=== PATIENT | male | born 1940 | race Caucasian/White ===

== ENCOUNTER → 2017-05-21 | Outpatient (CLI) | payer MEDICARE, OTHER ==
[~2017-05-21] MED LIST: ACET325T14 PO; AMLO10TA2 PO; AMLO5TAB2 PO; ASCO-96 PO; ASPI-496 PO; ATOR20TA PO; CLOP75TA PO; FERR325T18 PO; HEPA500024 SC; INSU100C SQ-INSULIN; INSU100V8 SQ; LEVO750T26 PO; LISI40TA PO; METO-99 PO; METO25TA35 PO; OMEP40CA6 PO; POTA10TA11 PO; TRAM-47 PO
== END | disposition home or self-care (01) ==
LOC: CFH 14:34
PROVIDERS: ATTEND Internal Medicine
DX: Z13.820 Encounter for screening for osteoporosis (principal); M81.0 Age-related osteoporosis without current pathological fracture; N25.81 Secondary hyperparathyroidism of renal origin
CPT/HCPCS: 77080

== ENCOUNTER 2018-04-14 21:13 | Inpatient (IN) | payer MEDICARE, OTHER ==
[~2018-04-14] VITALS: Ht 182.9 cm; Wt 83.3 kg
[~2018-04-14 21:13] MED LIST changes: -AMLO10TA2 PO; +AMLO10TA6 PO; -AMLO5TAB2 PO; +AMLO5TAB7 PO
[2018-04-14] MEDS ORDERED: ACETAMINOPHEN 500 MG TABLET ONE (21:44)
[2018-04-14] MEDS ORDERED: ACETAMINOPHEN 325 MG TABLET PO ONE (22:00)
[2018-04-14] MEDS ORDERED: ACETAMINOPHEN 500 MG TABLET PO ONE (22:00)
[2018-04-14 22:33] LABS: MEAN CORPUSCULAR HEMOGLOBIN 31.4 pg (27.5-34.5); MEAN CORPUSCULAR HGB CONC 33.9 g/dL (33.2-36.2); MEAN CORPUSCULAR VOLUME 92.9 fL (81-97); MEAN PLATELET VOLUME 9.2 fL (7.4-10.4); PLATELET COUNT 231 x10^3/uL (130-400); RED BLOOD COUNT 4.65 x10^6/uL (4.38-5.82)
[2018-04-14 22:47] LABS: MICROSCOPIC INDICATED
[2018-04-14 22:56] LABS: BASOPHILS # (AUTO) 0.03 x10^3/uL (0-0.1); BASOPHILS % (AUTO) 0 % (0-1); EOSINOPHILS % (AUTO) 0 % (1-7); LYMPHOCYTES # (AUTO) 2.09 x10^3/uL (1-3.4); LYMPHOCYTES % (AUTO) 18 % (22-44); MD SCAN; MONOCYTES # (AUTO) 1.58 x10^3/uL (0.2-0.8); MONOCYTES % (AUTO) 14 % (2-9); NEUTROPHILS # (AUTO) 7.81 x10^3/uL (1.8-6.8); NEUTROPHILS % (AUTO) 68 % (42-75)
[2018-04-14] MEDS ORDERED: CEFTRIAXONE 1,000 MG in SODIUM CHLORIDE 0.9% 50 ML IVPB ONE (23:00)
[2018-04-14] MEDS ORDERED: AZITHROMYCIN 500 MG in SODIUM CHLORIDE 0.9% 250 ML IV ONE (23:00)
[2018-04-14] MEDS ORDERED: CEFTRIAXONE PMX 1GM/50ML 50 ML ONE (23:09)
[2018-04-14 23:11] LABS: ANION GAP 13 mmol/L (5-15); CALCIUM 8.3 mg/dL (8.5-10.1); CHLORIDE 100 mmol/L (98-107); CREATININE 2.12 mg/dL (0.7-1.3)
[2018-04-14 23:13] LABS: CULTURE INDICATED? NO
[2018-04-14 23:16] LABS: RAPID INFLUENZA A Negative (Negative); RAPID INFLUENZA B Negative (Negative)
[2018-04-14] MEDS ORDERED: SODIUM CHLORIDE 0.9% 1,000 ML IV SCH (23:36)
[2018-04-15] MEDS ORDERED: ACETAMINOPHEN 325 MG TABLET PO PRN
[2018-04-15] MEDS ORDERED: DOCUSATE 100 MG CAPSULE PO PRN
[2018-04-15] MEDS ORDERED: GUAIFENESIN/DM 200-20MG, 10ML UDC PO PRN
[2018-04-15] MEDS ORDERED: hydrALAzine 20 MG/ML, 1ML IVPush PRN
[2018-04-15] MEDS ORDERED: ONDANSETRON ODT 4 MG PO PRN
[2018-04-15] MEDS ORDERED: TEMAZEPAM 15 MG CAPSULE PO PRN
[2018-04-15 00:30] VITALS: BP 152/75
[2018-04-15 00:47] VITALS: BP 152/75
[2018-04-15] MEDS: ATORVASTATIN 20 MG TABLET PO SCH ×2 (01:23→21:59)
[2018-04-15] MEDS: METOPROLOL TARTRATE 25 MG TABLET PO SCH ×2 (06:15→18:00)
[2018-04-15] MEDS: INSULIN LISPRO 100 UNITS/ML, PEN SQ-INSULIN SCH ×5 (07:39→22:02)
[2018-04-15 07:47] VITALS: BP 201/76
[2018-04-15] MEDS: AMLODIPINE 5 MG TABLET PO SCH (07:47)
[2018-04-15 08:15] LABS: ALBUMIN 2.8 g/dL (3.4-5.0); ANION GAP 9 mmol/L (5-15); CALCIUM 7.9 mg/dL (8.5-10.1); CHLORIDE 103 mmol/L (98-107); CREATININE 2.17 mg/dL (0.7-1.3)
[2018-04-15] MEDS ORDERED: CLOPIDOGREL 75 MG TABLET PO SCH (09:00)
[2018-04-15] MEDS ORDERED: ASPIRIN 81 MG TABLET CHEW PO SCH (09:00)
[2018-04-15] MEDS ORDERED: NITROGLYCERIN 0.4 MG BOTTLE (25 TABS) SL PRN (12:00)
[2018-04-15 13:25] VITALS: BP 158/62
[2018-04-15] MEDS: SODIUM CHLORIDE 0.9% 1,000 ML IV SCH (13:35)
[2018-04-15] MEDS: LAMOTRIGINE 100 MG TABLET PO SCH ×2 (16:00→22:00)
[2018-04-15 16:55] VITALS: BP 188/90
[2018-04-15 19:02] VITALS: BP_SYST 179; BP_SYST 192; BP_DIAS 76; BP_DIAS 82
[2018-04-15] MEDS ORDERED: INSULIN GLARGINE 100 UNITS/ML, PEN SQ-INSULIN SCH (21:00)
[2018-04-15] MEDS ORDERED: CEFTRIAXONE PMX 1GM/50ML 50 ML IV SCH (23:00)
[2018-04-15] MEDS ORDERED: AZITHROMYCIN 500 MG in SODIUM CHLORIDE 0.9% 250 ML IV SCH (23:00)
[2018-04-16 03:33] VITALS: BP_SYST 191; BP_SYST 197; BP_DIAS 80
[2018-04-16 05:03] LABS: ANION GAP 9 mmol/L (5-15); CALCIUM 7.4 mg/dL (8.5-10.1); CHLORIDE 106 mmol/L (98-107)
[2018-04-16 05:05] LABS: CREATININE 1.73 mg/dL (0.7-1.3)
[2018-04-16] MEDS ORDERED: POTASSIUM CHLORIDE 20 MEQ TAB.ER.PRT PO ONE (06:30)
[2018-04-16] MEDS: INSULIN LISPRO 100 UNITS/ML, PEN SQ-INSULIN SCH ×2 (07:00→11:26)
[2018-04-16] MEDS ORDERED: OMEPRAZOLE 20 MG CAPSULE.DR PO SCH (07:30)
[2018-04-16] MEDS: LAMOTRIGINE 100 MG TABLET PO SCH (09:00)
[2018-04-16 10:34] VITALS: BP 177/73
[2018-04-16] MEDS ORDERED: POTASSIUM CHLORIDE 20 MEQ TAB.ER.PRT ONE (10:47)
[2018-04-16] MEDS: METOPROLOL TARTRATE 25 MG TABLET PO SCH ×2 (10:48→11:18)
[2018-04-16] MEDS: AMLODIPINE 5 MG TABLET PO SCH (10:49)
[2018-04-16 10:53] VITALS: BP 166/73
[2018-04-16] MEDS: SODIUM CHLORIDE 0.9% 1,000 ML IV SCH (11:12)
[2018-04-16] MEDS ORDERED: hydrALAzine 20 MG/ML, 1ML IV ONE (11:30)
[2018-04-16] MEDS ORDERED: MULT-211 PO (11:49)
[2018-04-16] MEDS ORDERED: INSU100V11 SQ (11:49)
[2018-04-16] MEDS ORDERED: METO5AMP2 PO (11:54)
[2018-04-16] MEDS ORDERED: CEFU500T50 PO (12:16)
[2018-04-16] MEDS ORDERED: AZIT500T PO (12:16)
[2018-04-16 12:35] VITALS: BP 169/71
[2018-04-16 12:52] VITALS: BP 129/80
== END 2018-04-16 13:50 | disposition home or self-care (01) | DRG 682 ==
LOC: ED 21:17 → EDIP 04-15 00:03 → 4NOR 04-15 00:31 → DCLOUNGE 04-16 13:39
PROVIDERS: ADMIT Internal Medicine; ATTEND Hospitalist
DX: N17.9 Acute kidney failure, unspecified (principal); J15.9 Unspecified bacterial pneumonia; J96.11 Chronic respiratory failure with hypoxia; J44.0 Chronic obstructive pulmonary disease with (acute) lower respiratory infection; E11.21 Type 2 diabetes mellitus with diabetic nephropathy; E11.22 Type 2 diabetes mellitus with diabetic chronic kidney disease; E11.69 Type 2 diabetes mellitus with other specified complication; E78.5 Hyperlipidemia, unspecified; I13.10 Hypertensive heart and chronic kidney disease without heart failure, with stage 1 through stage 4 chronic kidney disease, or unspecified chronic kidney disease; N18.3 Chronic kidney disease, stage 3 (moderate); Z82.3 Family history of stroke; Z83.3 Family history of diabetes mellitus; Z87.891 Personal history of nicotine dependence; Z99.81 Dependence on supplemental oxygen; Z98.1 Arthrodesis status; Z88.6 Allergy status to analgesic agent; Z88.2 Allergy status to sulfonamides; Z90.49 Acquired absence of other specified parts of digestive tract
CPT/HCPCS: 36415; 71045; 80048; 81001; 82040; 82962; 83735; 84100; 85025; 87040; 87400; 93005; 96365; 96375; G0378; J0456; J0696; J0360; J1815; J7030; J7050

== ENCOUNTER 2018-07-23 16:01 | Inpatient (IN) | payer MEDICARE, OTHER ==
[~2018-07-23] VITALS: Ht 182.9 cm; Wt 77.1 kg
[~2018-07-23 16:01] MED LIST changes: +AMLO-150 PO; -AMLO10TA6 PO; +AMLO10TA8 PO; -AMLO5TAB7 PO; +ATOR-2 PO; +ATOR40TA PO; +AZIT500T PO; +CEFD300C37 PO; +CEFU500T50 PO; +DOXY100T PO; +GABA300C10 PO; +INSU100I11 SQ-INSULIN; +INSU100I13 SQ-INSULIN; +INSU100V11 SQ; +METO5AMP2 PO; +METR500T PO; +MULT-211 PO; +TAMS-11 PO
[2018-07-23 16:46] LABS: MEAN CORPUSCULAR HEMOGLOBIN 29.5 pg (27.5-34.5); MEAN CORPUSCULAR HGB CONC 32.5 g/dL (33.2-36.2); MEAN CORPUSCULAR VOLUME 90.7 fL (81-97); MEAN PLATELET VOLUME 7.6 fL (7.4-10.4); PLATELET COUNT 356 x10^3/uL (130-400); RED BLOOD COUNT 4.04 x10^6/uL (4.38-5.82)
[2018-07-23 17:00] LABS: ANION GAP 10 mmol/L (5-15); CHLORIDE 106 mmol/L (98-107)
[2018-07-23 17:06] LABS: ALANINE AMINOTRANSFERASE 27 U/L (12-78); ALKALINE PHOSPHATASE 83 U/L (45-117); BILIRUBIN,TOTAL 0.4 mg/dL (0.2-1.0); CREATININE 1.48 mg/dL (0.7-1.3); TOTAL PROTEIN 6.6 g/dL (6.4-8.2)
[2018-07-23 17:14] LABS: TROPONIN I 0.315 ng/mL (0.000-0.045)
[2018-07-23 17:18] LABS: MD YES
[2018-07-23 17:21] LABS: BAND#(MANUAL) 0.83 x10^3/uL; BANDS%(MANUAL) 7 % (0-7); LYMPH#(MANUAL) 1.06 x10^3/uL (1-3.4); LYMPHS% (MANUAL) 9 % (22-44); MONOS#(MANUAL) 0.59 x10^3/uL (0.3-2.7); MONOS% (MANUAL) 5 % (2-9); SEG#(MANUAL) 9.32 x10^3/uL (1.8-6.8); SEGS% (MANUAL) 79 % (42-75)
[2018-07-23 17:22] LABS: <PLATELET ESTIMATE> ADEQUATE; <PLT MORPHOLOGY> NORMAL PLT MORPH; <RBC MORPHOLOGY> NORMAL
[2018-07-23] MEDS ORDERED: CLOPIDOGREL 75 MG TABLET PO ONE (18:00)
[2018-07-23] MEDS ORDERED: INSU100I13 SQ-INSULIN (18:01)
--- NOTE | 2018-07-23 18:12 | NUR ---
[facility] TELEPHONE HAND-OFF REPORT TO CHAU DIETZ.
[2018-07-23] MEDS ORDERED: CLOPIDOGREL 75 MG TABLET ONE (18:14)
--- NOTE | 2018-07-23 18:18 | NUR ---
PLAVIX GIVEN. PATIENT TO IMAGING AT THIS TIME.
[2018-07-23] MEDS ORDERED: GABAPENTIN 300 MG CAPSULE PO PRN (18:30)
[2018-07-23] MEDS ORDERED: POLYETHYLENE GLYCOL 17 GM PACKET PO PRN (18:30)
[2018-07-23] MEDS ORDERED: ONDANSETRON 2MG/ML, 2ML IVPush PRN (18:30)
[2018-07-23] MEDS ORDERED: GLUCAGON 1 MG IM PRN (18:30)
[2018-07-23] MEDS ORDERED: DEXTROSE 4 GM TAB.CHEW PO PRN (18:30)
[2018-07-23] MEDS ORDERED: ONDANSETRON ODT 4 MG PO PRN (18:30)
[2018-07-23] MEDS ORDERED: LABETALOL 5MG/ML, 20ML IVPush PRN (18:30)
[2018-07-23] MEDS ORDERED: DEXTROSE 50%, 50ML SYRINGE IVPush PRN (18:30)
[2018-07-23 18:38] LABS: FREE T4 (FREE THYROXINE) 1.39 ng/dL (0.76-1.46); TROPONIN I 0.329 ng/mL (0.000-0.045)
[2018-07-23 20:11] VITALS: BP 147/75
[2018-07-23] MEDS ORDERED: PHARMACY MAY ADJ FOR RENAL FX MC PRN (20:30)
[2018-07-23] MEDS: SODIUM CHLORIDE FLUSH 10ML SYR IVF SCH (21:00)
[2018-07-23] MEDS: AMLODIPINE 5 MG TABLET PO SCH (21:07)
[2018-07-23] MEDS: OMEPRAZOLE 20 MG CAPSULE.DR PO SCH (21:08)
[2018-07-23] MEDS: ATORVASTATIN 40 MG TABLET PO SCH (21:08)
[2018-07-23] MEDS: TAMSULOSIN 0.4 MG CAP.ER.24H PO SCH (21:12)
[2018-07-23] MEDS: INSULIN LISPRO 100 UNITS/ML, PEN SQ-INSULIN SCH (21:19)
[2018-07-23] MEDS: PIPERACILLIN/TAZO/PMX 3.375GM 50 ML IV SCH (21:19)
[2018-07-23] MEDS: INSULIN GLARGINE 100 UNITS/ML, PEN SQ-INSULIN SCH (21:20)
[2018-07-23] MEDS ORDERED: ALBUTEROL SULFATE 2.5 MG/3 ML NPPB PRN (21:30)
[2018-07-24 02:24] VITALS: BP 129/76
[2018-07-24] MEDS: PIPERACILLIN/TAZO/PMX 3.375GM 50 ML IV SCH ×4 (02:50→20:22)
[2018-07-24 05:27] LABS: BASOPHILS # (AUTO) 0.04 x10^3/uL (0-0.1); BASOPHILS % (AUTO) 0 % (0-1); EOSINOPHILS # (AUTO) 0.15 x10^3/uL (0-0.4); EOSINOPHILS % (AUTO) 2 % (1-7); LYMPHOCYTES # (AUTO) 2.65 x10^3/uL (1-3.4); LYMPHOCYTES % (AUTO) 26 % (22-44); MD NO; MEAN CORPUSCULAR HEMOGLOBIN 30.3 pg (27.5-34.5); MEAN CORPUSCULAR HGB CONC 33.5 g/dL (33.2-36.2); MEAN CORPUSCULAR VOLUME 90.4 fL (81-97); MEAN PLATELET VOLUME 7.4 fL (7.4-10.4); MONOCYTES # (AUTO) 0.84 x10^3/uL (0.2-0.8); MONOCYTES % (AUTO) 8 % (2-9); NEUTROPHILS # (AUTO) 6.63 x10^3/uL (1.8-6.8); NEUTROPHILS % (AUTO) 64 % (42-75); PLATELET COUNT 340 x10^3/uL (130-400); RED BLOOD COUNT 3.91 x10^6/uL (4.38-5.82)
[2018-07-24 05:31] LABS: ALBUMIN 1.9 g/dL (3.4-5.0); ANION GAP 8 mmol/L (5-15); CALCIUM 8.2 mg/dL (8.5-10.1); CHLORIDE 105 mmol/L (98-107)
[2018-07-24 05:44] LABS: ALANINE AMINOTRANSFERASE 26 U/L (12-78); ALKALINE PHOSPHATASE 76 U/L (45-117); BILIRUBIN,TOTAL 0.5 mg/dL (0.2-1.0); CREATININE 1.37 mg/dL (0.7-1.3); THYROID STIMULATING HORMONE 0.359 mIU/L (0.358-3.740); TOTAL PROTEIN 6.4 g/dL (6.4-8.2)
[2018-07-24] MEDS: INSULIN LISPRO 100 UNITS/ML, PEN SQ-INSULIN SCH ×4 (07:00→20:38)
[2018-07-24] MEDS ORDERED: MAGNESIUM SULFATE PMX 2GM/50ML 50 ML IV ONE (07:30)
[2018-07-24] MEDS ORDERED: POTASSIUM CHLORIDE 20 MEQ TAB.ER.PRT PO ONE ×2 (07:30→11:30)
[2018-07-24 08:17] VITALS: BP 149/74
[2018-07-24] MEDS: SENNA/DOCUSATE TABLET PO SCH (08:21)
[2018-07-24] MEDS: AMLODIPINE 5 MG TABLET PO SCH ×2 (08:22→20:22)
[2018-07-24] MEDS: MULTIVITAMINS/MINERALS TABLET PO SCH (08:22)
[2018-07-24] MEDS: OMEPRAZOLE 20 MG CAPSULE.DR PO SCH ×2 (08:22→20:22)
[2018-07-24] MEDS: SODIUM CHLORIDE FLUSH 10ML SYR IVF SCH ×2 (08:22→20:23)
[2018-07-24] MEDS: CLOPIDOGREL 75 MG TABLET PO SCH (08:22)
[2018-07-24] MEDS ORDERED: MIDAZOLAM 1 MG/ML, 5ML ONE (09:05)
[2018-07-24] MEDS ORDERED: FENTANYL PF 100 MCG/2ML ONE ×2 (09:05→12:29)
[2018-07-24] MEDS ORDERED: NITROGLYCERIN 5 MG/ML, 10ML ONE (09:06)
[2018-07-24] MEDS ORDERED: TICAGRELOR 90 MG TABLET ONE (09:06)
[2018-07-24] MEDS ORDERED: BIVALIRUDIN 250 MG ONE (09:06)
[2018-07-24] MEDS ORDERED: LIDOCAINE 2%, 20ML ONE (09:06)
[2018-07-24] MEDS ORDERED: HEPARIN 1,000 UNITS/ML, 10ML ONE (09:06)
[2018-07-24] MEDS ORDERED: VERAPAMIL 2.5 MG/ML, 2ML ONE ×2 (09:06→12:29)
[2018-07-24] MEDS ORDERED: LIDOCAINE 1%, 20ML ONE (12:29)
[2018-07-24 14:54] VITALS: BP 134/70
[2018-07-24] MEDS: ATORVASTATIN 40 MG TABLET PO SCH (20:22)
[2018-07-24] MEDS: TAMSULOSIN 0.4 MG CAP.ER.24H PO SCH (20:27)
[2018-07-24 20:32] VITALS: BP 119/60
[2018-07-24] MEDS: INSULIN GLARGINE 100 UNITS/ML, PEN SQ-INSULIN SCH (20:38)
[2018-07-25] MEDS: PIPERACILLIN/TAZO/PMX 3.375GM 50 ML IV SCH ×4 (01:50→20:46)
[2018-07-25 02:49] VITALS: BP 127/62
[2018-07-25 05:35] LABS: BASOPHILS # (AUTO) 0.03 x10^3/uL (0-0.1); BASOPHILS % (AUTO) 0 % (0-1); EOSINOPHILS # (AUTO) 0.23 x10^3/uL (0-0.4); EOSINOPHILS % (AUTO) 2 % (1-7); LYMPHOCYTES # (AUTO) 3.03 x10^3/uL (1-3.4); LYMPHOCYTES % (AUTO) 27 % (22-44); MD NO; MEAN CORPUSCULAR HGB CONC 33.2 g/dL (33.2-36.2); MEAN CORPUSCULAR VOLUME 90.5 fL (81-97); MEAN PLATELET VOLUME 7.2 fL (7.4-10.4); MONOCYTES # (AUTO) 0.92 x10^3/uL (0.2-0.8); MONOCYTES % (AUTO) 8 % (2-9); NEUTROPHILS # (AUTO) 7.06 x10^3/uL (1.8-6.8); NEUTROPHILS % (AUTO) 63 % (42-75); PLATELET COUNT 333 x10^3/uL (130-400); RED BLOOD COUNT 3.99 x10^6/uL (4.38-5.82); RED CELL DISTRIBUTION WIDTH 13.9 % (9.4-14.8)
[2018-07-25 05:38] LABS: ANION GAP 7 mmol/L (5-15); CALCIUM 7.8 mg/dL (8.5-10.1); CHLORIDE 107 mmol/L (98-107)
[2018-07-25 05:46] LABS: CREATININE 1.51 mg/dL (0.7-1.3)
[2018-07-25] MEDS: INSULIN LISPRO 100 UNITS/ML, PEN SQ-INSULIN SCH ×4 (07:21→20:47)
[2018-07-25] MEDS: SENNA/DOCUSATE TABLET PO SCH (08:33)
[2018-07-25] MEDS: AMLODIPINE 5 MG TABLET PO SCH ×2 (08:33→20:46)
[2018-07-25] MEDS: MULTIVITAMINS/MINERALS TABLET PO SCH (08:33)
[2018-07-25] MEDS: CLOPIDOGREL 75 MG TABLET PO SCH (08:33)
[2018-07-25] MEDS: OMEPRAZOLE 20 MG CAPSULE.DR PO SCH ×2 (08:34→20:46)
[2018-07-25] MEDS: SODIUM CHLORIDE FLUSH 10ML SYR IVF SCH ×2 (08:34→20:50)
[2018-07-25 09:45] VITALS: BP 112/68
[2018-07-25] MEDS: SODIUM CHLORIDE 0.9% 1,000 ML IV SCH ×2 (12:06→23:00)
[2018-07-25 14:19] VITALS: BP 124/62
--- NOTE | 2018-07-25 17:22 | NUR ---
REC PUREE/NTL; swallow precautions sheet posted at bedside Addendum: 07/25/18 at [address] Amended: Links added.
[2018-07-25 19:36] VITALS: BP 150/69
[2018-07-25] MEDS: ATORVASTATIN 40 MG TABLET PO SCH (20:47)
[2018-07-25] MEDS: INSULIN GLARGINE 100 UNITS/ML, PEN SQ-INSULIN SCH (20:48)
[2018-07-25] MEDS: TAMSULOSIN 0.4 MG CAP.ER.24H PO SCH (20:49)
[2018-07-26 01:20] VITALS: BP 134/65
[2018-07-26] MEDS: MELATONIN 5 MG TABLET PO PRN ×2 (01:40→22:08)
[2018-07-26] MEDS: PIPERACILLIN/TAZO/PMX 3.375GM 50 ML IV SCH ×3 (02:58→14:36)
[2018-07-26 06:03] LABS: BASOPHILS # (AUTO) 0.04 x10^3/uL (0-0.1); BASOPHILS % (AUTO) 0 % (0-1); EOSINOPHILS # (AUTO) 0.12 x10^3/uL (0-0.4); EOSINOPHILS % (AUTO) 1 % (1-7); LYMPHOCYTES # (AUTO) 2.82 x10^3/uL (1-3.4); LYMPHOCYTES % (AUTO) 28 % (22-44); MD NO; MEAN CORPUSCULAR HEMOGLOBIN 30.9 pg (27.5-34.5); MEAN CORPUSCULAR HGB CONC 34.2 g/dL (33.2-36.2); MEAN CORPUSCULAR VOLUME 90.3 fL (81-97); MEAN PLATELET VOLUME 7.2 fL (7.4-10.4); MONOCYTES # (AUTO) 0.81 x10^3/uL (0.2-0.8); MONOCYTES % (AUTO) 8 % (2-9); NEUTROPHILS # (AUTO) 6.37 x10^3/uL (1.8-6.8); NEUTROPHILS % (AUTO) 63 % (42-75); PLATELET COUNT 309 x10^3/uL (130-400); RED BLOOD COUNT 3.64 x10^6/uL (4.38-5.82); RED CELL DISTRIBUTION WIDTH 13.8 % (9.4-14.8)
[2018-07-26 06:18] LABS: ANION GAP 7 mmol/L (5-15); CALCIUM 7.8 mg/dL (8.5-10.1); CHLORIDE 107 mmol/L (98-107); CREATININE 1.58 mg/dL (0.7-1.3)
[2018-07-26] MEDS: INSULIN LISPRO 100 UNITS/ML, PEN SQ-INSULIN SCH ×4 (07:00→22:08)
[2018-07-26 07:24] VITALS: BP 138/68
[2018-07-26] MEDS: SENNA/DOCUSATE TABLET PO SCH (08:21)
[2018-07-26] MEDS: MULTIVITAMINS/MINERALS TABLET PO SCH (08:37)
[2018-07-26] MEDS: SODIUM CHLORIDE FLUSH 10ML SYR IVF SCH ×2 (08:37→22:07)
[2018-07-26] MEDS: CLOPIDOGREL 75 MG TABLET PO SCH (08:37)
[2018-07-26] MEDS: AMLODIPINE 5 MG TABLET PO SCH ×2 (08:37→22:08)
[2018-07-26] MEDS: OMEPRAZOLE 20 MG CAPSULE.DR PO SCH ×2 (08:37→22:08)
[2018-07-26 10:40] LABS: CLOSTRIDIUM DIFFICILE ANTIGEN NEGATIVE; CLOSTRIDIUM DIFFICILE TOXIN NEGATIVE (Negative)
[2018-07-26] MEDS ORDERED: MIDAZOLAM 1 MG/ML, 2ML ONE (11:28)
[2018-07-26] MEDS ORDERED: LIDOCAINE 1%, 20ML ONE (11:28)
[2018-07-26] MEDS ORDERED: FENTANYL PF 100 MCG/2ML ONE (11:28)
[2018-07-26] MEDS ORDERED: BIVALIRUDIN 250 MG ONE (11:28)
[2018-07-26] MEDS ORDERED: DIPHENHYDRAMINE 50 MG/ML, 1ML ONE (11:58)
[2018-07-26] MEDS ORDERED: SODIUM CHLORIDE 0.9% 1,000 ML IV SCH (12:53)
[2018-07-26 14:57] VITALS: BP 150/68
[2018-07-26 15:00] VITALS: BP 137/68
[2018-07-26 20:22] VITALS: BP 153/70
[2018-07-26] MEDS: AMOXICILLIN/CLAV 875-125MG TABLET PO SCH (22:07)
[2018-07-26] MEDS: TAMSULOSIN 0.4 MG CAP.ER.24H PO SCH (22:08)
[2018-07-26] MEDS: INSULIN GLARGINE 100 UNITS/ML, PEN SQ-INSULIN SCH (22:09)
[2018-07-27 02:30] VITALS: BP 146/64
[2018-07-27 04:35] LABS: BASOPHILS # (AUTO) 0.05 x10^3/uL (0-0.1); BASOPHILS % (AUTO) 0 % (0-1); EOSINOPHILS % (AUTO) 1 % (1-7); LYMPHOCYTES % (AUTO) 26 % (22-44); MD NO; MEAN CORPUSCULAR HEMOGLOBIN 30.5 pg (27.5-34.5); MEAN CORPUSCULAR HGB CONC 33.5 g/dL (33.2-36.2); MEAN CORPUSCULAR VOLUME 91.1 fL (81-97); MONOCYTES # (AUTO) 0.92 x10^3/uL (0.2-0.8); MONOCYTES % (AUTO) 9 % (2-9); NEUTROPHILS # (AUTO) 6.74 x10^3/uL (1.8-6.8); NEUTROPHILS % (AUTO) 64 % (42-75); PLATELET COUNT 333 x10^3/uL (130-400); RED BLOOD COUNT 3.76 x10^6/uL (4.38-5.82); RED CELL DISTRIBUTION WIDTH 13.9 % (9.4-14.8)
[2018-07-27 04:47] LABS: ANION GAP 9 mmol/L (5-15); CALCIUM 7.5 mg/dL (8.5-10.1); CHLORIDE 108 mmol/L (98-107); CREATININE 1.49 mg/dL (0.7-1.3)
[2018-07-27] MEDS: INSULIN LISPRO 100 UNITS/ML, PEN SQ-INSULIN SCH ×4 (07:00→21:47)
[2018-07-27 07:06] VITALS: BP 157/70
[2018-07-27] MEDS: SENNA/DOCUSATE TABLET PO SCH (07:42)
[2018-07-27] MEDS: AMOXICILLIN/CLAV 875-125MG TABLET PO SCH ×2 (08:25→21:46)
[2018-07-27] MEDS: CLOPIDOGREL 75 MG TABLET PO SCH (08:26)
[2018-07-27] MEDS: MULTIVITAMINS/MINERALS TABLET PO SCH (08:26)
[2018-07-27] MEDS: OMEPRAZOLE 20 MG CAPSULE.DR PO SCH ×2 (08:26→21:47)
[2018-07-27] MEDS: AMLODIPINE 5 MG TABLET PO SCH ×2 (08:26→21:46)
[2018-07-27] MEDS: SODIUM CHLORIDE FLUSH 10ML SYR IVF SCH ×2 (08:29→21:46)
[2018-07-27] MEDS: SODIUM CHLORIDE 0.9% 1,000 ML IV SCH ×3 (08:29→20:53)
[2018-07-27 13:22] VITALS: BP 138/57
[2018-07-27 21:11] VITALS: BP 150/66
[2018-07-27] MEDS: TAMSULOSIN 0.4 MG CAP.ER.24H PO SCH (21:46)
[2018-07-27] MEDS: MELATONIN 5 MG TABLET PO PRN (21:48)
[2018-07-27] MEDS: INSULIN GLARGINE 100 UNITS/ML, PEN SQ-INSULIN SCH (21:48)
[2018-07-28 01:30] VITALS: BP 130/53
[2018-07-28] MEDS: SODIUM CHLORIDE 0.9% 1,000 ML IV SCH ×4 (03:00→23:13)
[2018-07-28 05:00] LABS: BASOPHILS # (AUTO) 0.04 x10^3/uL (0-0.1); BASOPHILS % (AUTO) 0 % (0-1); EOSINOPHILS # (AUTO) 0.03 x10^3/uL (0-0.4); EOSINOPHILS % (AUTO) 0 % (1-7); LYMPHOCYTES # (AUTO) 2.34 x10^3/uL (1-3.4); LYMPHOCYTES % (AUTO) 19 % (22-44); MD NO; MEAN CORPUSCULAR HEMOGLOBIN 30.7 pg (27.5-34.5); MEAN CORPUSCULAR VOLUME 90.3 fL (81-97); MEAN PLATELET VOLUME 7.4 fL (7.4-10.4); MONOCYTES # (AUTO) 1.11 x10^3/uL (0.2-0.8); MONOCYTES % (AUTO) 9 % (2-9); NEUTROPHILS # (AUTO) 9.05 x10^3/uL (1.8-6.8); NEUTROPHILS % (AUTO) 72 % (42-75); PLATELET COUNT 325 x10^3/uL (130-400); RED BLOOD COUNT 3.88 x10^6/uL (4.38-5.82); RED CELL DISTRIBUTION WIDTH 13.9 % (9.4-14.8)
[2018-07-28 05:15] LABS: ALBUMIN 2.1 g/dL (3.4-5.0); ANION GAP 7 mmol/L (5-15); CALCIUM 7.9 mg/dL (8.5-10.1); CHLORIDE 107 mmol/L (98-107)
[2018-07-28 05:16] LABS: CREATININE 1.45 mg/dL (0.7-1.3)
[2018-07-28 07:02] VITALS: BP 150/85
[2018-07-28] MEDS ORDERED: CEFAZOLIN PMX 1GM/50ML 50 ML IVPB ONE (07:30)
[2018-07-28] MEDS: INSULIN LISPRO 100 UNITS/ML, PEN SQ-INSULIN SCH ×4 (07:49→20:49)
[2018-07-28] MEDS: AMLODIPINE 5 MG TABLET PO SCH ×2 (08:43→20:31)
[2018-07-28] MEDS: AMOXICILLIN/CLAV 875-125MG TABLET PO SCH (08:43)
[2018-07-28] MEDS: MULTIVITAMINS/MINERALS TABLET PO SCH (08:43)
[2018-07-28] MEDS: OMEPRAZOLE 20 MG CAPSULE.DR PO SCH ×2 (08:43→20:48)
[2018-07-28] MEDS: SENNA/DOCUSATE TABLET PO SCH (08:43)
[2018-07-28] MEDS: CLOPIDOGREL 75 MG TABLET PO SCH (08:43)
[2018-07-28] MEDS: SODIUM CHLORIDE FLUSH 10ML SYR IVF SCH ×3 (08:44→20:32)
[2018-07-28 12:54] VITALS: BP 146/54
[2018-07-28] MEDS ORDERED: MIDAZOLAM 1 MG/ML, 5ML ONE (16:26)
[2018-07-28] MEDS ORDERED: FENTANYL PF 100 MCG/2ML ONE (16:26)
[2018-07-28] MEDS ORDERED: LIDOCAINE 2%, 20ML ONE (16:26)
[2018-07-28] MEDS ORDERED: CEFAZOLIN 1,000 MG ONE (16:26)
[2018-07-28] MEDS ORDERED: HOLD MEDICATION MC PRN (18:00)
[2018-07-28] MEDS ORDERED: VANCOMYCIN PMX 1GM/200ML 200 ML IVPB ONE (18:00)
[2018-07-28 19:55] VITALS: BP 150/77
[2018-07-28 20:28] VITALS: BP 141/73
[2018-07-28] MEDS: TAMSULOSIN 0.4 MG CAP.ER.24H PO SCH (20:30)
[2018-07-28] MEDS: MELATONIN 5 MG TABLET PO PRN (20:48)
[2018-07-28] MEDS: INSULIN GLARGINE 100 UNITS/ML, PEN SQ-INSULIN SCH (20:48)
[2018-07-28] MEDS ORDERED: ACETAMINOPHEN 325 MG TABLET PO PRN (23:00)
[2018-07-29] VITALS (11 sets, daily range): BP systolic 92–151; BP diastolic 55–72
[2018-07-29] MEDS ORDERED: NITROGLYCERIN 0.4 MG/SPRAY SL PRN (04:00)
[2018-07-29] MEDS: NITROGLYCERIN 0.4 MG BOTTLE (25 TABS) SL PRN (04:15)
[2018-07-29] MEDS ORDERED: VANCOMYCIN PMX 1GM/200ML 200 ML IVPB ONE (04:30)
[2018-07-29] MEDS ORDERED: morphine SULFATE 10 MG/ML, 1ML ONE (04:57)
[2018-07-29] MEDS ORDERED: MORPHINE SULFATE 4 MG/ML, 1ML IVPush ONE (05:00)
[2018-07-29 05:08] LABS: BASOPHILS # (AUTO) 0.04 x10^3/uL (0-0.1); BASOPHILS % (AUTO) 0 % (0-1); EOSINOPHILS # (AUTO) 0.05 x10^3/uL (0-0.4); EOSINOPHILS % (AUTO) 0 % (1-7); LYMPHOCYTES # (AUTO) 3.12 x10^3/uL (1-3.4); LYMPHOCYTES % (AUTO) 22 % (22-44); MD NO; MEAN CORPUSCULAR HGB CONC 32.8 g/dL (33.2-36.2); MEAN CORPUSCULAR VOLUME 91.5 fL (81-97); MEAN PLATELET VOLUME 7.5 fL (7.4-10.4); MONOCYTES # (AUTO) 0.97 x10^3/uL (0.2-0.8); MONOCYTES % (AUTO) 7 % (2-9); NEUTROPHILS # (AUTO) 9.94 x10^3/uL (1.8-6.8); NEUTROPHILS % (AUTO) 70 % (42-75); PLATELET COUNT 389 x10^3/uL (130-400); RED BLOOD COUNT 4.15 x10^6/uL (4.38-5.82); RED CELL DISTRIBUTION WIDTH 13.6 % (9.4-14.8)
[2018-07-29 05:20] LABS: ALBUMIN 2.3 g/dL (3.4-5.0); ANION GAP 10 mmol/L (5-15); CHLORIDE 105 mmol/L (98-107)
[2018-07-29 05:21] LABS: CREATININE 1.55 mg/dL (0.7-1.3)
[2018-07-29 06:00] LABS: TROPONIN I 0.647 ng/mL (0.000-0.045)
[2018-07-29] MEDS: ISOSORBIDE MONONITRATE ER 30 MG TABLET PO SCH (06:05)
[2018-07-29] MEDS: MORPHINE SULFATE 4 MG/ML, 1ML IVPush PRN ×4 (06:28→13:16)
[2018-07-29] MEDS: SODIUM CHLORIDE 0.9% 1,000 ML IV SCH ×3 (07:13→22:40)
[2018-07-29] MEDS: INSULIN LISPRO 100 UNITS/ML, PEN SQ-INSULIN SCH ×4 (07:45→21:51)
[2018-07-29] MEDS ORDERED: MAGNESIUM SULFATE PMX 2GM/50ML 50 ML IV ONE (08:30)
[2018-07-29] MEDS: SODIUM CHLORIDE FLUSH 10ML SYR IVF SCH ×2 (09:00→21:52)
[2018-07-29] MEDS: SENNA/DOCUSATE TABLET PO SCH (09:00)
[2018-07-29] MEDS: OMEPRAZOLE 20 MG CAPSULE.DR PO SCH ×2 (09:51→21:52)
[2018-07-29] MEDS: MULTIVITAMINS/MINERALS TABLET PO SCH (09:52)
[2018-07-29] MEDS: CLOPIDOGREL 75 MG TABLET PO SCH (09:52)
[2018-07-29] MEDS: AMLODIPINE 5 MG TABLET PO SCH ×2 (09:52→21:00)
[2018-07-29 12:03] LABS: TROPONIN I 0.299 ng/mL (0.000-0.045)
[2018-07-29] MEDS: METOPROLOL TARTRATE 25 MG TABLET PO SCH ×2 (12:03→18:02)
[2018-07-29] MEDS: INSULIN GLARGINE 100 UNITS/ML, PEN SQ-INSULIN SCH (21:51)
[2018-07-29] MEDS: ATORVASTATIN 80 MG TABLET PO SCH (21:52)
[2018-07-29] MEDS: TAMSULOSIN 0.4 MG CAP.ER.24H PO SCH (21:52)
[2018-07-29] MEDS: MELATONIN 5 MG TABLET PO PRN (22:39)
[2018-07-30] VITALS (9 sets, daily range): BP systolic 104–132; BP diastolic 56–78
[2018-07-30] MEDS: ISOSORBIDE MONONITRATE ER 30 MG TABLET PO SCH (05:45)
[2018-07-30] MEDS: METOPROLOL TARTRATE 25 MG TABLET PO SCH ×2 (05:45→17:40)
[2018-07-30] MEDS: SODIUM CHLORIDE 0.9% 1,000 ML IV SCH ×3 (08:26→21:30)
[2018-07-30] MEDS: AMLODIPINE 5 MG TABLET PO SCH ×2 (08:27→21:30)
[2018-07-30] MEDS: OMEPRAZOLE 20 MG CAPSULE.DR PO SCH ×2 (08:27→21:29)
[2018-07-30] MEDS: INSULIN LISPRO 100 UNITS/ML, PEN SQ-INSULIN SCH ×4 (08:27→21:29)
[2018-07-30] MEDS: SENNA/DOCUSATE TABLET PO SCH (08:28)
[2018-07-30] MEDS: MULTIVITAMINS/MINERALS TABLET PO SCH (08:28)
[2018-07-30] MEDS: SODIUM CHLORIDE FLUSH 10ML SYR IVF SCH ×2 (08:28→21:30)
[2018-07-30] MEDS: CLOPIDOGREL 75 MG TABLET PO SCH (08:28)
[2018-07-30 08:43] LABS: MEAN CORPUSCULAR HEMOGLOBIN 29.4 pg (27.5-34.5); MEAN CORPUSCULAR HGB CONC 32.1 g/dL (33.2-36.2); MEAN CORPUSCULAR VOLUME 91.7 fL (81-97); MEAN PLATELET VOLUME 7.8 fL (7.4-10.4); PLATELET COUNT 361 x10^3/uL (130-400); RED BLOOD COUNT 3.88 x10^6/uL (4.38-5.82); RED CELL DISTRIBUTION WIDTH 14.4 % (9.4-14.8)
[2018-07-30 08:49] LABS: ALBUMIN 2.1 g/dL (3.4-5.0); ANION GAP 6 mmol/L (5-15); CALCIUM 8.1 mg/dL (8.5-10.1); CHLORIDE 101 mmol/L (98-107)
[2018-07-30 08:57] LABS: BASOPHILS # (AUTO) 0.04 x10^3/uL (0-0.1); BASOPHILS % (AUTO) 0 % (0-1); EOSINOPHILS # (AUTO) 0.01 x10^3/uL (0-0.4); EOSINOPHILS % (AUTO) 0 % (1-7); LYMPHOCYTES # (AUTO) 2.04 x10^3/uL (1-3.4); LYMPHOCYTES % (AUTO) 14 % (22-44); MD SCAN; MONOCYTES # (AUTO) 1.57 x10^3/uL (0.2-0.8); MONOCYTES % (AUTO) 11 % (2-9); NEUTROPHILS # (AUTO) 11.25 x10^3/uL (1.8-6.8); NEUTROPHILS % (AUTO) 75 % (42-75)
[2018-07-30] MEDS: NITROGLYCERIN 0.4 MG BOTTLE (25 TABS) SL PRN ×3 (10:41→11:04)
[2018-07-30] MEDS ORDERED: BACLOFEN 10 MG TABLET PO PRN (11:00)
[2018-07-30] MEDS ORDERED: ATOR-2 PO (11:03)
[2018-07-30] MEDS ORDERED: CLOP75TA PO (11:03)
[2018-07-30] MEDS ORDERED: METO25TA35 PO (11:03)
[2018-07-30] MEDS ORDERED: ISOS30TA8 PO (11:07)
[2018-07-30] MEDS: MORPHINE SULFATE 4 MG/ML, 1ML IVPush PRN (11:23)
[2018-07-30] MEDS ORDERED: SODIUM CHLORIDE 0.9%, 500ML IVBOLUS ONE (11:30)
[2018-07-30 11:54] LABS: TROPONIN I 0.107 ng/mL (0.000-0.045)
[2018-07-30] MEDS ORDERED: KETOROLAC 30 MG/1 ML IVPush ONE (12:00)
[2018-07-30] MEDS: AMOXICILLIN/CLAV 875-125MG TABLET PO SCH ×2 (12:24→21:29)
[2018-07-30] MEDS ORDERED: HEPARIN 5,000 UNITS/ML, 1ML SQ SCH (14:00)
[2018-07-30] MEDS ORDERED: MAALOX/HYOSCYAMINE/LIDOCAINE 45 ML BTL PO ONE (14:30)
[2018-07-30] MEDS ORDERED: LIDODERM 5% PATCH TD SCH (16:00)
[2018-07-30] MEDS ORDERED: LIDODERM 5% PATCH TD PRN (17:00)
[2018-07-30] MEDS ORDERED: MORPHINE SULFATE 4 MG/ML, 1ML IVPush PRN (17:30)
[2018-07-30] MEDS ORDERED: SODIUM CHLORIDE 0.9% 1,000 ML IV ONE (18:00)
[2018-07-30] MEDS ORDERED: NAPROXEN 500 MG TABLET PO ONE (18:00)
[2018-07-30] MEDS: ATORVASTATIN 80 MG TABLET PO SCH (21:29)
[2018-07-30] MEDS: INSULIN GLARGINE 100 UNITS/ML, PEN SQ-INSULIN SCH (21:29)
[2018-07-30] MEDS: TAMSULOSIN 0.4 MG CAP.ER.24H PO SCH (21:29)
[2018-07-30] MEDS: MELATONIN 5 MG TABLET PO PRN (23:00)
[2018-07-31 01:58] VITALS: BP 94/50
[2018-07-31 05:17] LABS: ANION GAP 7 mmol/L (5-15); CALCIUM 7.7 mg/dL (8.5-10.1); CHLORIDE 105 mmol/L (98-107)
[2018-07-31 05:38] LABS: CREATININE 1.64 mg/dL (0.7-1.3)
[2018-07-31 06:15] VITALS: BP 123/64
[2018-07-31] MEDS: METOPROLOL TARTRATE 25 MG TABLET PO SCH ×2 (06:16→18:09)
[2018-07-31] MEDS: ASPIRIN 81 MG TABLET EC PO SCH (06:17)
[2018-07-31 06:53] VITALS: BP 111/62
[2018-07-31] MEDS: INSULIN LISPRO 100 UNITS/ML, PEN SQ-INSULIN SCH ×4 (07:00→21:36)
[2018-07-31 07:11] LABS: BASOPHILS # (AUTO) 0.09 x10^3/uL (0-0.1); BASOPHILS % (AUTO) 1 % (0-1); EOSINOPHILS # (AUTO) 0.03 x10^3/uL (0-0.4); EOSINOPHILS % (AUTO) 0 % (1-7); LYMPHOCYTES # (AUTO) 2.53 x10^3/uL (1-3.4); LYMPHOCYTES % (AUTO) 19 % (22-44); MD NO; MEAN CORPUSCULAR HEMOGLOBIN 29.5 pg (27.5-34.5); MEAN CORPUSCULAR HGB CONC 32.3 g/dL (33.2-36.2); MEAN CORPUSCULAR VOLUME 91.2 fL (81-97); MEAN PLATELET VOLUME 8.5 fL (7.4-10.4); MONOCYTES # (AUTO) 1.43 x10^3/uL (0.2-0.8); MONOCYTES % (AUTO) 11 % (2-9); NEUTROPHILS # (AUTO) 8.95 x10^3/uL (1.8-6.8); NEUTROPHILS % (AUTO) 69 % (42-75); PLATELET COUNT 312 x10^3/uL (130-400); RED BLOOD COUNT 3.55 x10^6/uL (4.38-5.82); RED CELL DISTRIBUTION WIDTH 14.4 % (9.4-14.8)
[2018-07-31] MEDS: SODIUM CHLORIDE 0.9% 1,000 ML IV SCH ×3 (07:13→22:28)
[2018-07-31 07:15] LABS: ALBUMIN 1.9 g/dL (3.4-5.0)
[2018-07-31 07:16] LABS: BILIRUBIN,TOTAL 0.3 mg/dL (0.2-1.0); TOTAL PROTEIN 6.2 g/dL (6.4-8.2)
[2018-07-31 07:24] LABS: ALANINE AMINOTRANSFERASE 22 U/L (12-78); ALKALINE PHOSPHATASE 59 U/L (45-117)
[2018-07-31] MEDS ORDERED: SODIUM CHLORIDE 0.9% 1,000 ML IV SCH (07:40)
[2018-07-31] MEDS ORDERED: MIDAZOLAM 1 MG/ML, 5ML ONE (08:38)
[2018-07-31] MEDS ORDERED: FENTANYL PF 100 MCG/2ML ONE (08:38)
[2018-07-31] MEDS: CLOPIDOGREL 75 MG TABLET PO SCH (08:38)
[2018-07-31] MEDS ORDERED: NITROGLYCERIN 5 MG/ML, 10ML ONE (08:39)
[2018-07-31] MEDS ORDERED: HEPARIN 1,000 UNITS/ML, 10ML ONE (08:39)
[2018-07-31] MEDS ORDERED: VERAPAMIL 2.5 MG/ML, 2ML ONE (08:39)
[2018-07-31] MEDS ORDERED: BIVALIRUDIN 250 MG ONE (08:39)
[2018-07-31] MEDS ORDERED: LIDOCAINE 2%, 20ML ONE (08:39)
[2018-07-31] MEDS: SENNA/DOCUSATE TABLET PO SCH (10:17)
[2018-07-31] MEDS: AMOXICILLIN/CLAV 875-125MG TABLET PO SCH ×2 (10:17→21:35)
[2018-07-31] MEDS: OMEPRAZOLE 20 MG CAPSULE.DR PO SCH (10:18)
[2018-07-31] MEDS: SODIUM CHLORIDE FLUSH 10ML SYR IVF SCH ×2 (10:18→21:36)
[2018-07-31] MEDS: AMLODIPINE 5 MG TABLET PO SCH (10:18)
[2018-07-31] MEDS: MULTIVITAMINS/MINERALS TABLET PO SCH (10:18)
[2018-07-31] MEDS ORDERED: GABAPENTIN 300 MG CAPSULE PO PRN (11:00)
[2018-07-31] MEDS: NAPROXEN 500 MG TABLET PO SCH ×2 (11:36→21:35)
[2018-07-31] MEDS: ISOSORBIDE MONONITRATE ER 30 MG TABLET PO SCH (12:04)
[2018-07-31 12:48] VITALS: BP 105/60
[2018-07-31 18:10] VITALS: BP 104/56
[2018-07-31 18:42] VITALS: BP 104/56
[2018-07-31] MEDS: INSULIN GLARGINE 100 UNITS/ML, PEN SQ-INSULIN SCH (21:35)
[2018-07-31] MEDS: MELATONIN 5 MG TABLET PO PRN (21:35)
[2018-07-31] MEDS: TAMSULOSIN 0.4 MG CAP.ER.24H PO SCH (21:35)
[2018-07-31] MEDS: ATORVASTATIN 80 MG TABLET PO SCH (21:35)
[2018-08-01 00:38] VITALS: BP 96/54
[2018-08-01 05:13] LABS: BASOPHILS # (AUTO) 0.05 x10^3/uL (0-0.1); BASOPHILS % (AUTO) 0 % (0-1); EOSINOPHILS # (AUTO) 0.03 x10^3/uL (0-0.4); EOSINOPHILS % (AUTO) 0 % (1-7); LYMPHOCYTES # (AUTO) 2.82 x10^3/uL (1-3.4); LYMPHOCYTES % (AUTO) 24 % (22-44); MD NO; MEAN CORPUSCULAR HEMOGLOBIN 30.9 pg (27.5-34.5); MEAN CORPUSCULAR HGB CONC 34.2 g/dL (33.2-36.2); MEAN CORPUSCULAR VOLUME 90.3 fL (81-97); MEAN PLATELET VOLUME 8.1 fL (7.4-10.4); MONOCYTES # (AUTO) 1.14 x10^3/uL (0.2-0.8); MONOCYTES % (AUTO) 10 % (2-9); NEUTROPHILS # (AUTO) 7.76 x10^3/uL (1.8-6.8); NEUTROPHILS % (AUTO) 66 % (42-75); PLATELET COUNT 268 x10^3/uL (130-400); RED BLOOD COUNT 3.05 x10^6/uL (4.38-5.82); RED CELL DISTRIBUTION WIDTH 14.4 % (9.4-14.8)
[2018-08-01 05:24] LABS: CHLORIDE 108 mmol/L (98-107)
[2018-08-01 05:38] LABS: ALANINE AMINOTRANSFERASE 17 U/L (12-78); ALBUMIN 1.8 g/dL (3.4-5.0); ALKALINE PHOSPHATASE 54 U/L (45-117); ANION GAP 7 mmol/L (5-15); BILIRUBIN,TOTAL 0.5 mg/dL (0.2-1.0); CALCIUM 7.3 mg/dL (8.5-10.1); CREATININE 1.68 mg/dL (0.7-1.3); TOTAL PROTEIN 5.9 g/dL (6.4-8.2)
[2018-08-01] MEDS: SODIUM CHLORIDE 0.9% 1,000 ML IV SCH ×2 (06:00→08:01)
[2018-08-01] MEDS: ASPIRIN 81 MG TABLET EC PO SCH (06:22)
[2018-08-01] MEDS: METOPROLOL TARTRATE 25 MG TABLET PO SCH (06:24)
[2018-08-01 06:27] VITALS: BP 104/52
[2018-08-01] MEDS: INSULIN LISPRO 100 UNITS/ML, PEN SQ-INSULIN SCH ×2 (07:00→11:00)
[2018-08-01] MEDS: AMOXICILLIN/CLAV 875-125MG TABLET PO SCH (08:01)
[2018-08-01] MEDS: MULTIVITAMINS/MINERALS TABLET PO SCH (08:01)
[2018-08-01] MEDS: SODIUM CHLORIDE FLUSH 10ML SYR IVF SCH (08:02)
[2018-08-01] MEDS: CLOPIDOGREL 75 MG TABLET PO SCH (08:02)
[2018-08-01] MEDS: SENNA/DOCUSATE TABLET PO SCH (08:02)
[2018-08-01] MEDS: ISOSORBIDE MONONITRATE ER 30 MG TABLET PO SCH (08:02)
[2018-08-01] MEDS: NAPROXEN 500 MG TABLET PO SCH (08:03)
[2018-08-01 08:53] VITALS: BP 105/62
[2018-08-01] MEDS ORDERED: COLCHICINE 0.6 MG TABLET PO SCH (09:00)
[2018-08-01] MEDS ORDERED: AMLODIPINE 5 MG TABLET PO SCH (09:00)
[2018-08-01] MEDS ORDERED: OMEPRAZOLE 20 MG CAPSULE.DR PO SCH (09:00)
[2018-08-01] MEDS ORDERED: AMOX1TAB12 PO (09:01)
[2018-08-01] MEDS ORDERED: COLC0.6T37 PO (09:01)
[2018-08-01] MEDS ORDERED: AMLO-150 PO (09:01)
[2018-08-01] MEDS ORDERED: ASPI81TA45 PO (09:01)
[2018-08-01] MEDS ORDERED: OMEP40CA6 PO (09:02)
== END 2018-08-01 12:16 | disposition home or self-care (01) | DRG 242 ==
LOC: ED 16:48 → EDIP 17:21 → INTOOBSV 17:21 → OBSVTOIN 17:21 → 5SO 18:42
PROVIDERS: ADMIT Internal Medicine; ATTEND Internal Medicine
PROC: 02703EZ Dilation of Coronary Artery, One Artery with Two Intraluminal Devices, Percutaneous Approach (ICD-10-PCS; 2018-07-26)
PROC: 0JH606Z Insertion of Pacemaker, Dual Chamber into Chest Subcutaneous Tissue and Fascia, Open Approach (ICD-10-PCS; 2018-07-28)
PROC: 02H63JZ Insertion of Pacemaker Lead into Right Atrium, Percutaneous Approach (ICD-10-PCS; 2018-07-28)
PROC: 02HK3JZ Insertion of Pacemaker Lead into Right Ventricle, Percutaneous Approach (ICD-10-PCS; 2018-07-28)
PROC: 4A023N7 Measurement of Cardiac Sampling and Pressure, Left Heart, Percutaneous Approach (ICD-10-PCS; principal; 2018-07-31)
PROC: B2111ZZ Fluoroscopy of Multiple Coronary Arteries using Low Osmolar Contrast (ICD-10-PCS; 2018-07-31)
DX: I21.4 Non-ST elevation (NSTEMI) myocardial infarction (principal); J96.21 Acute and chronic respiratory failure with hypoxia; J69.0 Pneumonitis due to inhalation of food and vomit; E43 Unspecified severe protein-calorie malnutrition; I24.1 Dressler's syndrome; I31.9 Disease of pericardium, unspecified; D64.9 Anemia, unspecified; E11.22 Type 2 diabetes mellitus with diabetic chronic kidney disease; E11.65 Type 2 diabetes mellitus with hyperglycemia; E78.5 Hyperlipidemia, unspecified; E83.42 Hypomagnesemia; E83.51 Hypocalcemia; I13.10 Hypertensive heart and chronic kidney disease without heart failure, with stage 1 through stage 4 chronic kidney disease, or unspecified chronic kidney disease; I25.10 Atherosclerotic heart disease of native coronary artery without angina pectoris; I44.1 Atrioventricular block, second degree; F17.210 Nicotine dependence, cigarettes, uncomplicated; I49.5 Sick sinus syndrome; J44.9 Chronic obstructive pulmonary disease, unspecified; K21.9 Gastro-esophageal reflux disease without esophagitis; N18.3 Chronic kidney disease, stage 3 (moderate); R29.810 Facial weakness; W18.30XA Fall on same level, unspecified, initial encounter; Z79.02 Long term (current) use of antithrombotics/antiplatelets; Z79.4 Long term (current) use of insulin; Z82.3 Family history of stroke; Z82.49 Family history of ischemic heart disease and other diseases of the circulatory system; Z85.820 Personal history of malignant melanoma of skin; Z86.73 Personal history of transient ischemic attack (TIA), and cerebral infarction without residual deficits; Z88.6 Allergy status to analgesic agent; Z99.81 Dependence on supplemental oxygen; Z88.8 Allergy status to other drugs, medicaments and biological substances; Z23 Encounter for immunization; I25.2 Old myocardial infarction; Z68.23 Body mass index [BMI] 23.0-23.9, adult
CPT/HCPCS: 33208; 36415; 70450; 71045; 71250; 80048; 80053; 82040; 82962; 83605; 83735; 84100; 84145; 84439; 84443; 84484; 85025; 87040; 87070; 87205; 87324; 90656; 92928; 93005; 93306; 93325; 93454; 93970; 99156; 99157; C1760; C1769; C1779; C1785; C1876; C1892; C1894; G0378; J0583; J0690; J1644; J2250; J2543; J3010; J3370; J3490; C1725; C1887; C8924; J1200; J1815; J3475; J7030; J7040; Q9967

== ENCOUNTER 2018-08-04 10:32 | Emergency (ER) | payer MEDICARE, OTHER ==
[~2018-08-04] VITALS: Ht 182.9 cm; Wt 66.0 kg
[~2018-08-04 10:32] MED LIST changes: +AMOX1TAB12 PO; +ASPI81TA45 PO; +COLC0.6T37 PO; +ISOS30TA8 PO
[2018-08-04 11:16] LABS: MEAN CORPUSCULAR HEMOGLOBIN 29.5 pg (27.5-34.5); MEAN CORPUSCULAR HGB CONC 32.8 g/dL (33.2-36.2); MEAN CORPUSCULAR VOLUME 90.1 fL (81-97); MEAN PLATELET VOLUME 7.7 fL (7.4-10.4); PLATELET COUNT 385 x10^3/uL (130-400); RED BLOOD COUNT 3.91 x10^6/uL (4.38-5.82); RED CELL DISTRIBUTION WIDTH 14.4 % (9.4-14.8)
[2018-08-04 11:19] LABS: INTERNATIONAL NORMALIZED RATIO 1.04 (0.93-1.1)
[2018-08-04 11:21] LABS: ALBUMIN 2.3 g/dL (3.4-5.0); ANION GAP 9 mmol/L (5-15); CALCIUM 8.8 mg/dL (8.5-10.1); CHLORIDE 102 mmol/L (98-107); CREATININE 1.63 mg/dL (0.7-1.3)
[2018-08-04 11:34] LABS: BASOPHILS # (AUTO) 0.05 x10^3/uL (0-0.1); BASOPHILS % (AUTO) 1 % (0-1); EOSINOPHILS # (AUTO) 0.04 x10^3/uL (0-0.4); EOSINOPHILS % (AUTO) 1 % (1-7); LYMPHOCYTES % (AUTO) 8 % (22-44); MD SCAN; MONOCYTES # (AUTO) 0.55 x10^3/uL (0.2-0.8); MONOCYTES % (AUTO) 8 % (2-9); NEUTROPHILS # (AUTO) 5.95 x10^3/uL (1.8-6.8); NEUTROPHILS % (AUTO) 83 % (42-75)
[2018-08-04 11:38] LABS: MICROSCOPIC INDICATED
[2018-08-04 11:39] LABS: CULTURE INDICATED? YES
[2018-08-04 14:55] VITALS: BP 160/70
== END 2018-08-04 15:08 | disposition home or self-care (01) ==
LOC: ED 12:19
DX: J98.11 Atelectasis (principal); I25.2 Old myocardial infarction; R06.00 Dyspnea, unspecified; R31.0 Gross hematuria; E11.9 Type 2 diabetes mellitus without complications; E78.5 Hyperlipidemia, unspecified; J44.9 Chronic obstructive pulmonary disease, unspecified; I10 Essential (primary) hypertension; Z87.01 Personal history of pneumonia (recurrent); Z88.2 Allergy status to sulfonamides; Z88.8 Allergy status to other drugs, medicaments and biological substances; Z79.899 Other long term (current) drug therapy; Z86.73 Personal history of transient ischemic attack (TIA), and cerebral infarction without residual deficits; Z95.0 Presence of cardiac pacemaker
CPT/HCPCS: 36415; 71045; 80048; 81001; 82040; 83880; 84484; 85025; 85610; 85730; 87086; 93005; 99284

== ENCOUNTER 2018-09-01 09:18 | Inpatient (IN) | payer MEDICARE, OTHER ==
[~2018-09-01] VITALS: Ht 182.9 cm; Wt 72.3 kg
--- NOTE | 2018-09-01 09:29 | NUR ---
PT. ARRIVES BY [place] WITH C/O INCREASING SOB OVER THE PAST 2 TO 3 DAYS. PT. HAD A RECENT PACER MAKER AND 2 STENTS PLACED. PT. IS PINK,WARM AND DRY. LUNGS ARE CTA. MM ARE PINK AND MOIST WITH PULSES + 2 THROUGHOUT. PT. HAS THE CP MONITOR IN PLACE. IV ACCESS ESTABLISHED. PT. HAS +3 PITTING EDEMA IN HIS LOWER LEGS. PT. HAS THE SIDERAILS UP X 2 WITH THE CALL LIGHT IN PLACE.
[2018-09-01] MEDS ORDERED: ASPIRIN 81 MG TABLET CHEW PO ONE (09:30)
[2018-09-01 09:56] LABS: BASOPHILS % (AUTO) 1 % (0-1); EOSINOPHILS # (AUTO) 0.05 x10^3/uL (0-0.4); EOSINOPHILS % (AUTO) 0 % (1-7); LYMPHOCYTES # (AUTO) 1.89 x10^3/uL (1-3.4); LYMPHOCYTES % (AUTO) 17 % (22-44); MD NO; MEAN CORPUSCULAR HEMOGLOBIN 28.5 pg (27.5-34.5); MEAN CORPUSCULAR HGB CONC 32.4 g/dL (33.2-36.2); MEAN CORPUSCULAR VOLUME 88.1 fL (81-97); MEAN PLATELET VOLUME 7.7 fL (7.4-10.4); MONOCYTES # (AUTO) 0.82 x10^3/uL (0.2-0.8); MONOCYTES % (AUTO) 8 % (2-9); NEUTROPHILS # (AUTO) 7.98 x10^3/uL (1.8-6.8); NEUTROPHILS % (AUTO) 74 % (42-75); PLATELET COUNT 384 x10^3/uL (130-400); RED BLOOD COUNT 3.93 x10^6/uL (4.38-5.82); RED CELL DISTRIBUTION WIDTH 15.3 % (9.4-14.8)
[2018-09-01 09:59] LABS: INTERNATIONAL NORMALIZED RATIO 1.08 (0.93-1.1); PROTHROMBIN TIME 11.3 Seconds (9.6-11.5)
[2018-09-01 10:07] LABS: ALBUMIN 2.4 g/dL (3.4-5.0); CALCIUM 8.2 mg/dL (8.5-10.1); CREATININE 1.34 mg/dL (0.7-1.3)
[2018-09-01 10:11] LABS: ANION GAP 7 mmol/L (5-15); CHLORIDE 105 mmol/L (98-107)
[2018-09-01 10:25] LABS: TROPONIN I 0.752 ng/mL (0.000-0.045)
[2018-09-01] MEDS ORDERED: FUROSEMIDE 40 MG/4 ML IV ONE ×2 (11:00→16:00)
[2018-09-01] MEDS ORDERED: ASPIRIN 81 MG TABLET CHEW ONE (11:02)
[2018-09-01] MEDS ORDERED: FUROSEMIDE 40 MG/4 ML ONE ×2 (11:02→15:52)
--- NOTE | 2018-09-01 11:10 | NUR ---
PT. IS RESTING WITH THE CP MONITOR IN PLACE. BLOOD CULTURES WERE DRAWN X 2. MEDS GIVEN ORDERED. PT. IS WATCHING TV WITHOUT CONCERNS.
--- NOTE | 2018-09-01 11:10 | NUR ---
PT. REMAINS MONITORED WITH STABLE VITALS.
--- NOTE | 2018-09-01 11:59 | NUR ---
paged dr galvez for dr camp.
--- NOTE | 2018-09-01 12:00 | NUR ---
dr galvez returned call to dr camp.
--- NOTE | 2018-09-01 12:15 | NUR ---
PT. REMAINS MONITORED AND IS RESTING WITHOUT CONCERNS.
[2018-09-01] MEDS ORDERED: CLOPIDOGREL 300 MG TABLET PO ONE (13:00)
[2018-09-01] MEDS ORDERED: POTASSIUM CHLORIDE 20 MEQ TAB.ER.PRT PO ONE (13:00)
[2018-09-01 13:18] LABS: LDL/HDL RATIO 0.5 (0.5-3.0)
--- NOTE | 2018-09-01 13:52 | NUR ---
NO CHANGES AT THIS TIME.
[2018-09-01] MEDS: TAMSULOSIN 0.4 MG CAP.ER.24H PO SCH (14:00)
[2018-09-01] MEDS ORDERED: GABAPENTIN 300 MG CAPSULE PO PRN (14:00)
[2018-09-01 14:14] LABS: HEMOGLOBIN A1C 10.8 % (4.2-6.3)
--- NOTE | 2018-09-01 14:23 | NUR ---
PT. HAS HIS COMPRESSION STOCKINGS IN PLACE. PT. WAS PLACED ON A HOSPITAL BED.
--- NOTE | 2018-09-01 14:31 | NUR ---
BREAK RN: ASSUMED CARE OF PT FOR PRIMARY RN. PT MOVED TO HOSPITAL BED. US AT BEDSIDE.
[2018-09-01 15:32] LABS: ALANINE AMINOTRANSFERASE 18 U/L (12-78); ALBUMIN 2.2 g/dL (3.4-5.0); ANION GAP 6 mmol/L (5-15); CALCIUM 8.1 mg/dL (8.5-10.1); CHLORIDE 104 mmol/L (98-107); CREATININE 1.26 mg/dL (0.7-1.3)
[2018-09-01 15:36] LABS: ALKALINE PHOSPHATASE 86 U/L (45-117); BILIRUBIN,TOTAL 0.6 mg/dL (0.2-1.0); TOTAL PROTEIN 6.8 g/dL (6.4-8.2)
[2018-09-01 15:38] LABS: TROPONIN I 0.608 ng/mL (0.000-0.045)
[2018-09-01] MEDS ORDERED: TAMSULOSIN 0.4 MG CAP.ER.24H ONE (15:52)
[2018-09-01] MEDS ORDERED: HEPARIN 5,000 UNITS/ML, 1ML ONE (15:53)
[2018-09-01] MEDS: HEPARIN 5,000 UNITS/ML, 1ML SQ SCH (16:06)
--- NOTE | 2018-09-01 16:14 | NUR ---
cardiac rhythm printed and placed on chart.
[2018-09-01] MEDS: ISOSORBIDE MONONITRATE ER 30 MG TABLET PO SCH (17:32)
--- NOTE | 2018-09-01 18:16 | NUR ---
TASK RN: REPORT CALLED TO CHAU BONE
[2018-09-01] MEDS: CARVEDILOL 6.25 MG TABLET PO SCH (18:54)
[2018-09-01 19:39] LABS: MICROSCOPIC NOT IND
[2018-09-01 19:45] LABS: CULTURE INDICATED? NO
[2018-09-01 19:54] VITALS: BP 100/67
[2018-09-01] MEDS ORDERED: INSULIN GLARGINE 100 UNITS/ML, PEN SQ-INSULIN SCH (21:00)
[2018-09-01] MEDS ORDERED: ATORVASTATIN 80 MG TABLET PO SCH (21:00)
[2018-09-01] MEDS: ATORVASTATIN 80 MG TABLET PO SCH (21:16)
[2018-09-01] MEDS: METOPROLOL TARTRATE 25 MG TABLET PO SCH (21:16)
[2018-09-01] MEDS: FUROSEMIDE 20 MG/2 ML IVPush SCH (21:17)
[2018-09-01 21:27] LABS: TROPONIN I 0.676 ng/mL (0.000-0.045)
[2018-09-01] MEDS: INSULIN GLARGINE 100 UNITS/ML, PEN SQ-INSULIN SCH (21:30)
[2018-09-01] MEDS ORDERED: DIPHENHYDRAMINE 25 MG CAPSULE ONE (23:39)
[2018-09-01 23:42] VITALS: BP 108/65
[2018-09-02] MEDS: DIPHENHYDRAMINE 25 MG CAPSULE PO PRN ×2 (00:10→21:23)
[2018-09-02] MEDS: HEPARIN 5,000 UNITS/ML, 1ML SQ SCH ×2 (00:10→09:03)
[2018-09-02 01:43] VITALS: BP 113/64
[2018-09-02 03:03] LABS: TROPONIN I 0.628 ng/mL (0.000-0.045)
[2018-09-02] MEDS: ASPIRIN 81 MG TABLET EC PO SCH (05:16)
[2018-09-02] MEDS: CARVEDILOL 6.25 MG TABLET PO SCH ×2 (05:16→17:47)
[2018-09-02 06:07] LABS: BASOPHILS # (AUTO) 0.03 x10^3/uL (0-0.1); BASOPHILS % (AUTO) 0 % (0-1); EOSINOPHILS # (AUTO) 0.29 x10^3/uL (0-0.4); EOSINOPHILS % (AUTO) 3 % (1-7); LYMPHOCYTES # (AUTO) 1.97 x10^3/uL (1-3.4); LYMPHOCYTES % (AUTO) 22 % (22-44); MD NO; MEAN CORPUSCULAR HEMOGLOBIN 29.6 pg (27.5-34.5); MEAN CORPUSCULAR HGB CONC 34.1 g/dL (33.2-36.2); MEAN CORPUSCULAR VOLUME 86.8 fL (81-97); MEAN PLATELET VOLUME 7.5 fL (7.4-10.4); MONOCYTES # (AUTO) 0.69 x10^3/uL (0.2-0.8); MONOCYTES % (AUTO) 8 % (2-9); NEUTROPHILS # (AUTO) 5.91 x10^3/uL (1.8-6.8); NEUTROPHILS % (AUTO) 66 % (42-75); PLATELET COUNT 366 x10^3/uL (130-400); RED BLOOD COUNT 3.47 x10^6/uL (4.38-5.82); RED CELL DISTRIBUTION WIDTH 15.4 % (9.4-14.8)
[2018-09-02 06:19] LABS: ANION GAP 5 mmol/L (5-15); CALCIUM 7.9 mg/dL (8.5-10.1); CHLORIDE 104 mmol/L (98-107)
[2018-09-02 06:23] LABS: ALANINE AMINOTRANSFERASE 17 U/L (12-78); ALKALINE PHOSPHATASE 77 U/L (45-117); BILIRUBIN,TOTAL 0.6 mg/dL (0.2-1.0); CREATININE 1.48 mg/dL (0.7-1.3); TOTAL PROTEIN 6.3 g/dL (6.4-8.2)
[2018-09-02 07:19] VITALS: BP 103/57
[2018-09-02] MEDS ORDERED: AMLODIPINE 5 MG TABLET PO SCH (09:00)
[2018-09-02] MEDS ORDERED: CLOPIDOGREL 75 MG TABLET PO SCH ×2 (09:00)
[2018-09-02] MEDS: METOPROLOL TARTRATE 25 MG TABLET PO SCH (09:00)
[2018-09-02] MEDS: MULTIVITAMIN 1 TABLET PO SCH (09:03)
[2018-09-02] MEDS: OMEPRAZOLE 20 MG CAPSULE.DR PO SCH (09:03)
[2018-09-02] MEDS: POTASSIUM CHLORIDE 20 MEQ TAB.ER.PRT PO SCH (09:03)
[2018-09-02] MEDS: FUROSEMIDE 20 MG/2 ML IVPush SCH ×2 (09:03→21:23)
[2018-09-02] MEDS ORDERED: SODIUM CHLORIDE NASAL SPRAY 45ML BOTTLE NAS PRN (12:00)
[2018-09-02] MEDS: ISOSORBIDE MONONITRATE ER 30 MG TABLET PO SCH (13:12)
[2018-09-02] MEDS: TAMSULOSIN 0.4 MG CAP.ER.24H PO SCH (13:12)
[2018-09-02 14:45] VITALS: BP 96/56
[2018-09-02] MEDS: RIVAROXABAN 15 MG TABLET PO SCH (17:47)
[2018-09-02 18:39] VITALS: BP 105/64
[2018-09-02] MEDS: ATORVASTATIN 80 MG TABLET PO SCH (21:23)
[2018-09-02] MEDS: INSULIN GLARGINE 100 UNITS/ML, PEN SQ-INSULIN SCH (21:28)
[2018-09-03 00:49] VITALS: BP 112/64
[2018-09-03] MEDS: ASPIRIN 81 MG TABLET EC PO SCH (06:27)
[2018-09-03] MEDS: CARVEDILOL 6.25 MG TABLET PO SCH ×2 (06:27→17:52)
[2018-09-03 06:50] VITALS: BP 112/64
[2018-09-03 07:43] LABS: ALBUMIN 2.2 g/dL (3.4-5.0); ANION GAP 7 mmol/L (5-15); CHLORIDE 105 mmol/L (98-107); CREATININE 1.65 mg/dL (0.7-1.3)
[2018-09-03] MEDS ORDERED: REGADENOSON 0.4 MG/5 ML SYRINGE ONE (08:08)
[2018-09-03] MEDS: FUROSEMIDE 20 MG/2 ML IVPush SCH (10:00)
[2018-09-03] MEDS: MULTIVITAMIN 1 TABLET PO SCH (10:00)
[2018-09-03] MEDS: OMEPRAZOLE 20 MG CAPSULE.DR PO SCH (10:00)
[2018-09-03] MEDS: TAMSULOSIN 0.4 MG CAP.ER.24H PO SCH (10:00)
[2018-09-03] MEDS: POTASSIUM CHLORIDE 20 MEQ TAB.ER.PRT PO SCH (10:01)
[2018-09-03 13:42] VITALS: BP 109/64
[2018-09-03 14:18] VITALS: BP 109/64
[2018-09-03] MEDS ORDERED: FUROSEMIDE 20 MG TABLET PO SCH (17:00)
[2018-09-03] MEDS: RIVAROXABAN 15 MG TABLET PO SCH (17:52)
[2018-09-03 19:20] VITALS: BP 113/61
[2018-09-03] MEDS: ATORVASTATIN 80 MG TABLET PO SCH (22:27)
[2018-09-03] MEDS: INSULIN GLARGINE 100 UNITS/ML, PEN SQ-INSULIN SCH (22:28)
[2018-09-03] MEDS: DIPHENHYDRAMINE 25 MG CAPSULE PO PRN (22:28)
[2018-09-04 01:33] VITALS: BP 102/57
[2018-09-04 05:26] LABS: CHLORIDE 106 mmol/L (98-107)
[2018-09-04 05:33] LABS: ANION GAP 7 mmol/L (5-15); CALCIUM 7.8 mg/dL (8.5-10.1); CREATININE 1.71 mg/dL (0.7-1.3)
[2018-09-04] MEDS: CARVEDILOL 6.25 MG TABLET PO SCH (05:57)
[2018-09-04] MEDS: ASPIRIN 81 MG TABLET EC PO SCH (05:57)
[2018-09-04] MEDS ORDERED: SODIUM CHLORIDE 0.9%, 250ML IVBOLUS ONE (06:30)
[2018-09-04 06:32] VITALS: BP 108/67
[2018-09-04] MEDS: MULTIVITAMIN 1 TABLET PO SCH (08:32)
[2018-09-04] MEDS: POTASSIUM CHLORIDE 20 MEQ TAB.ER.PRT PO SCH (08:32)
[2018-09-04] MEDS: TAMSULOSIN 0.4 MG CAP.ER.24H PO SCH (08:32)
[2018-09-04] MEDS: OMEPRAZOLE 20 MG CAPSULE.DR PO SCH (08:32)
[2018-09-04 11:27] LABS: ALBUMIN 2.2 g/dL (3.4-5.0); ANION GAP 5 mmol/L (5-15); CALCIUM 7.9 mg/dL (8.5-10.1); CHLORIDE 105 mmol/L (98-107); CREATININE 1.56 mg/dL (0.7-1.3)
[2018-09-04 13:16] VITALS: BP 118/72
[2018-09-04] MEDS ORDERED: RIVA15TA PO (13:43)
== END 2018-09-04 16:14 | disposition home health service (06) | DRG 291 ==
LOC: ED 10:12 → EDIP 11:59 → 5SO 18:38 → DCLOUNGE 09-04 16:00
PROVIDERS: ADMIT Hospitalist; ATTEND Hospitalist
DX: I13.0 Hypertensive heart and chronic kidney disease with heart failure and stage 1 through stage 4 chronic kidney disease, or unspecified chronic kidney disease (principal); I50.43 Acute on chronic combined systolic (congestive) and diastolic (congestive) heart failure; J18.9 Pneumonia, unspecified organism; D68.69 Other thrombophilia; J44.0 Chronic obstructive pulmonary disease with (acute) lower respiratory infection; I48.91 Unspecified atrial fibrillation; M10.9 Gout, unspecified; E11.22 Type 2 diabetes mellitus with diabetic chronic kidney disease; E78.5 Hyperlipidemia, unspecified; I25.10 Atherosclerotic heart disease of native coronary artery without angina pectoris; K21.9 Gastro-esophageal reflux disease without esophagitis; N40.0 Benign prostatic hyperplasia without lower urinary tract symptoms; I25.5 Ischemic cardiomyopathy; N18.3 Chronic kidney disease, stage 3 (moderate); Z66 Do not resuscitate; Z95.5 Presence of coronary angioplasty implant and graft; I25.2 Old myocardial infarction; Z79.02 Long term (current) use of antithrombotics/antiplatelets; Z79.4 Long term (current) use of insulin; Z85.820 Personal history of malignant melanoma of skin; Z86.73 Personal history of transient ischemic attack (TIA), and cerebral infarction without residual deficits; Z86.79 Personal history of other diseases of the circulatory system; Z87.891 Personal history of nicotine dependence; Z88.2 Allergy status to sulfonamides; Z95.0 Presence of cardiac pacemaker; Z99.81 Dependence on supplemental oxygen
CPT/HCPCS: 36415; 71045; 78452; 80048; 80053; 80061; 80069; 81003; 82040; 82962; 83036; 83605; 83880; 84145; 84484; 85025; 85610; 85730; 87040; 93005; 93017; 93306; 93970; 96374; 96375; 99285; G0378; J1644; J1940; J2785; A9502; C9898; J1815; J7050; Q0163

== ENCOUNTER 2018-09-21 14:16 | Inpatient (IN) | payer MEDICARE, OTHER ==
[~2018-09-21] VITALS: Ht 182.9 cm; Wt 83.5 kg
[~2018-09-21 14:16] MED LIST changes: +RIVA15TA PO
--- NOTE | 2018-09-21 14:27 | NUR ---
BIB [facility] FOR BLE SWELLING AND INCREASED SOB. PT WAS DX W/ CHF 2 WKS AGO AND PLACED ON LASIX 20 MG QDAY AT THAT TIME. PER PT HE STATES WEIGHT HAS DECREASED RECENTLY. PT NOTED TO HAVE BLE 3+ PITTING EDEMA. PT PLACED ON MONITORS. EKG COMPLETED. WARM BLANKETS PROVIDED. ALLEN GOLDBERG AT BEDSIDE.
[2018-09-21] MEDS ORDERED: SODIUM CHLORIDE FLUSH 10ML SYR IVF ONE (14:30)
[2018-09-21] MEDS ORDERED: ATOR-2 PO (14:45)
[2018-09-21] MEDS ORDERED: BACL20TA PO (14:45)
[2018-09-21] MEDS ORDERED: AMLO2.5T2 PO (14:45)
[2018-09-21] MEDS ORDERED: FURO-93 PO (14:45)
[2018-09-21 15:00] LABS: BASOPHILS # (AUTO) 0.07 x10^3/uL (0-0.1); BASOPHILS % (AUTO) 1 % (0-1); EOSINOPHILS # (AUTO) 0.13 x10^3/uL (0-0.4); EOSINOPHILS % (AUTO) 1 % (1-7); LYMPHOCYTES % (AUTO) 24 % (22-44); MD NO; MEAN CORPUSCULAR HEMOGLOBIN 29.4 pg (27.5-34.5); MEAN CORPUSCULAR HGB CONC 33.3 g/dL (33.2-36.2); MEAN CORPUSCULAR VOLUME 88.3 fL (81-97); MONOCYTES % (AUTO) 10 % (2-9); NEUTROPHILS # (AUTO) 6.63 x10^3/uL (1.8-6.8); NEUTROPHILS % (AUTO) 64 % (42-75); PLATELET COUNT 274 x10^3/uL (130-400); RED BLOOD COUNT 3.28 x10^6/uL (4.38-5.82); RED CELL DISTRIBUTION WIDTH 16.9 % (9.4-14.8)
[2018-09-21 15:09] LABS: ALANINE AMINOTRANSFERASE 15 U/L (12-78); ALBUMIN 2.5 g/dL (3.4-5.0); ANION GAP 7 mmol/L (5-15); CALCIUM 8.1 mg/dL (8.5-10.1); CHLORIDE 103 mmol/L (98-107); CREATININE 1.55 mg/dL (0.7-1.3)
--- NOTE | 2018-09-21 15:10 | NUR ---
PT TAKEN TO US.
[2018-09-21 15:11] LABS: INTERNATIONAL NORMALIZED RATIO 1.11 (0.93-1.1); PROTHROMBIN TIME 11.6 Seconds (9.6-11.5)
[2018-09-21 15:13] LABS: ALKALINE PHOSPHATASE 86 U/L (45-117); BILIRUBIN,TOTAL 0.9 mg/dL (0.2-1.0); TOTAL PROTEIN 6.3 g/dL (6.4-8.2); TROPONIN I 0.021 ng/mL (0.000-0.045)
--- NOTE | 2018-09-21 15:43 | NUR ---
PT CHART REVIEWED AND PLACED FOR RECHECK.
[2018-09-21] MEDS ORDERED: LABETALOL 5 MG/ML SYRINGE IVPush PRN (16:30)
[2018-09-21] MEDS ORDERED: ONDANSETRON ODT 4 MG PO PRN (16:30)
[2018-09-21] MEDS ORDERED: morphine SULFATE 10 MG/ML, 1ML IVPush PRN (16:30)
[2018-09-21] MEDS ORDERED: ONDANSETRON 2MG/ML, 2ML IVPush PRN (16:30)
[2018-09-21] MEDS ORDERED: SODIUM CHLORIDE FLUSH 10ML SYR IVF PRN (16:30)
--- NOTE | 2018-09-21 17:16 | NUR ---
REPORT GIVEN TO CASANDRA MARINO RN. ALL QUESTIONS ANSWERED. AWAITING PT TRANSPORT.
[2018-09-21] MEDS ORDERED: GABAPENTIN 300 MG CAPSULE PO PRN (18:00)
[2018-09-21 18:36] VITALS: BP 127/60
[2018-09-21 20:29] VITALS: BP 127/68
[2018-09-21 20:43] VITALS: BP 104/62
[2018-09-21] MEDS: FUROSEMIDE 20 MG/2 ML IV SCH (20:45)
[2018-09-21] MEDS: BACLOFEN 10 MG TABLET PO SCH (20:45)
[2018-09-21] MEDS: ATORVASTATIN 40 MG TABLET PO SCH (20:46)
[2018-09-21] MEDS: TAMSULOSIN 0.4 MG CAP.ER.24H PO SCH (20:46)
[2018-09-21] MEDS: METOPROLOL TARTRATE 25 MG TABLET PO SCH (20:46)
[2018-09-21] MEDS: ISOSORBIDE MONONITRATE ER 30 MG TABLET PO SCH (20:47)
[2018-09-21] MEDS ORDERED: INSULIN GLARGINE 100 UNITS/ML, PEN SQ-INSULIN SCH (21:00)
[2018-09-21] MEDS ORDERED: INSU100I13 SQ-INSULIN (21:55)
[2018-09-22 01:16] VITALS: BP 112/60
[2018-09-22 05:23] LABS: BASOPHILS # (AUTO) 0.03 x10^3/uL (0-0.1); BASOPHILS % (AUTO) 0 % (0-1); EOSINOPHILS # (AUTO) 0.17 x10^3/uL (0-0.4); EOSINOPHILS % (AUTO) 2 % (1-7); LYMPHOCYTES # (AUTO) 2.03 x10^3/uL (1-3.4); LYMPHOCYTES % (AUTO) 21 % (22-44); MD NO; MEAN CORPUSCULAR HEMOGLOBIN 29.7 pg (27.5-34.5); MEAN CORPUSCULAR HGB CONC 33.5 g/dL (33.2-36.2); MEAN CORPUSCULAR VOLUME 88.6 fL (81-97); MEAN PLATELET VOLUME 8.1 fL (7.4-10.4); MONOCYTES # (AUTO) 0.81 x10^3/uL (0.2-0.8); MONOCYTES % (AUTO) 8 % (2-9); NEUTROPHILS # (AUTO) 6.59 x10^3/uL (1.8-6.8); NEUTROPHILS % (AUTO) 68 % (42-75); PLATELET COUNT 248 x10^3/uL (130-400); RED BLOOD COUNT 3.08 x10^6/uL (4.38-5.82); RED CELL DISTRIBUTION WIDTH 16.9 % (9.4-14.8)
[2018-09-22 05:30] LABS: ALBUMIN 2.3 g/dL (3.4-5.0); ANION GAP 4 mmol/L (5-15); CALCIUM 8.1 mg/dL (8.5-10.1); CHLORIDE 105 mmol/L (98-107)
[2018-09-22 05:36] LABS: ALANINE AMINOTRANSFERASE 12 U/L (12-78); ALKALINE PHOSPHATASE 85 U/L (45-117); BILIRUBIN,TOTAL 1.1 mg/dL (0.2-1.0); CREATININE 1.53 mg/dL (0.7-1.3); TOTAL PROTEIN 6.1 g/dL (6.4-8.2)
[2018-09-22 06:12] VITALS: BP 107/63
[2018-09-22] MEDS: OMEPRAZOLE 20 MG CAPSULE.DR PO SCH (06:12)
[2018-09-22] MEDS: METOPROLOL TARTRATE 25 MG TABLET PO SCH ×2 (06:13→16:26)
[2018-09-22] MEDS: ASPIRIN 81 MG TABLET EC PO SCH (06:13)
[2018-09-22 07:49] VITALS: BP 104/57
[2018-09-22] MEDS: FUROSEMIDE 20 MG/2 ML IV SCH ×2 (08:18→16:27)
[2018-09-22] MEDS: AMLODIPINE 2.5 MG TABLET PO SCH (08:19)
[2018-09-22 12:48] VITALS: BP 109/64
[2018-09-22] MEDS: INSULIN GLARGINE 100 UNITS/ML, PEN SQ-INSULIN SCH (16:27)
[2018-09-22] MEDS: RIVAROXABAN 15 MG TABLET PO SCH (17:41)
[2018-09-22 18:43] VITALS: BP 109/61
[2018-09-22] MEDS ORDERED: ALBUTEROL SULFATE 2.5 MG/3 ML ONE (21:05)
[2018-09-22] MEDS: ALBUTEROL SULFATE 2.5 MG/3 ML NPPB PRN (21:09)
[2018-09-22] MEDS: BACLOFEN 10 MG TABLET PO SCH (21:34)
[2018-09-22] MEDS: ATORVASTATIN 40 MG TABLET PO SCH (21:34)
[2018-09-22] MEDS: ISOSORBIDE MONONITRATE ER 30 MG TABLET PO SCH (21:34)
[2018-09-22] MEDS: TAMSULOSIN 0.4 MG CAP.ER.24H PO SCH (21:34)
[2018-09-23 00:37] VITALS: BP 111/64
[2018-09-23 05:07] VITALS: BP 114/64
[2018-09-23] MEDS: ASPIRIN 81 MG TABLET EC PO SCH (05:10)
[2018-09-23] MEDS: METOPROLOL TARTRATE 25 MG TABLET PO SCH ×2 (05:10→17:43)
[2018-09-23] MEDS: OMEPRAZOLE 20 MG CAPSULE.DR PO SCH (05:10)
[2018-09-23 05:34] LABS: BASOPHILS # (AUTO) 0.04 x10^3/uL (0-0.1); BASOPHILS % (AUTO) 1 % (0-1); EOSINOPHILS # (AUTO) 0.08 x10^3/uL (0-0.4); EOSINOPHILS % (AUTO) 1 % (1-7); LYMPHOCYTES # (AUTO) 2.33 x10^3/uL (1-3.4); LYMPHOCYTES % (AUTO) 25 % (22-44); MD NO; MEAN CORPUSCULAR HEMOGLOBIN 29.2 pg (27.5-34.5); MEAN CORPUSCULAR HGB CONC 33.1 g/dL (33.2-36.2); MEAN CORPUSCULAR VOLUME 88.2 fL (81-97); MEAN PLATELET VOLUME 8.1 fL (7.4-10.4); MONOCYTES # (AUTO) 0.89 x10^3/uL (0.2-0.8); MONOCYTES % (AUTO) 10 % (2-9); NEUTROPHILS # (AUTO) 6.03 x10^3/uL (1.8-6.8); NEUTROPHILS % (AUTO) 64 % (42-75); PLATELET COUNT 277 x10^3/uL (130-400); RED BLOOD COUNT 3.28 x10^6/uL (4.38-5.82); RED CELL DISTRIBUTION WIDTH 17.2 % (9.4-14.8)
[2018-09-23 05:48] LABS: ALBUMIN 2.5 g/dL (3.4-5.0); ANION GAP 7 mmol/L (5-15); CALCIUM 8.2 mg/dL (8.5-10.1); CHLORIDE 102 mmol/L (98-107)
[2018-09-23 05:54] LABS: ALANINE AMINOTRANSFERASE 12 U/L (12-78); ALKALINE PHOSPHATASE 78 U/L (45-117); BILIRUBIN,TOTAL 0.6 mg/dL (0.2-1.0); CREATININE 1.49 mg/dL (0.7-1.3)
[2018-09-23] MEDS ORDERED: PHARMACY MAY ADJ FOR RENAL FX MC PRN (08:00)
[2018-09-23] MEDS: FUROSEMIDE 20 MG/2 ML IV SCH ×3 (08:28→20:06)
[2018-09-23] MEDS: AMOXICILLIN/CLAV 875-125MG TABLET PO SCH ×2 (08:28→20:06)
[2018-09-23] MEDS: AMLODIPINE 2.5 MG TABLET PO SCH (08:28)
[2018-09-23] MEDS: INSULIN GLARGINE 100 UNITS/ML, PEN SQ-INSULIN SCH (08:29)
[2018-09-23 08:33] VITALS: BP 111/57
[2018-09-23 15:00] VITALS: BP 121/69
[2018-09-23] MEDS: ALBUTEROL SULFATE 2.5 MG/3 ML NPPB PRN (15:42)
[2018-09-23] MEDS: ALBUMIN HUMAN 25% 100 ML IV SCH (17:00)
[2018-09-23] MEDS: ISOSORBIDE MONONITRATE ER 30 MG TABLET PO SCH (17:42)
[2018-09-23] MEDS: TAMSULOSIN 0.4 MG CAP.ER.24H PO SCH (17:42)
[2018-09-23] MEDS: RIVAROXABAN 15 MG TABLET PO SCH (17:42)
[2018-09-23] MEDS: ATORVASTATIN 40 MG TABLET PO SCH (20:05)
[2018-09-23] MEDS: BACLOFEN 10 MG TABLET PO SCH (20:05)
[2018-09-23 20:10] VITALS: BP 122/67
[2018-09-24 00:20] VITALS: BP 118/65
[2018-09-24] MEDS: ALBUMIN HUMAN 25% 100 ML IV SCH ×3 (01:00→16:48)
[2018-09-24 05:12] VITALS: BP 116/69
[2018-09-24] MEDS: OMEPRAZOLE 20 MG CAPSULE.DR PO SCH (05:13)
[2018-09-24] MEDS: ASPIRIN 81 MG TABLET EC PO SCH (05:13)
[2018-09-24] MEDS: METOPROLOL TARTRATE 25 MG TABLET PO SCH ×2 (05:14→18:29)
[2018-09-24 06:00] LABS: BASOPHILS # (AUTO) 0.03 x10^3/uL (0-0.1); BASOPHILS % (AUTO) 0 % (0-1); EOSINOPHILS # (AUTO) 0.06 x10^3/uL (0-0.4); EOSINOPHILS % (AUTO) 1 % (1-7); LYMPHOCYTES % (AUTO) 16 % (22-44); MD NO; MEAN CORPUSCULAR HEMOGLOBIN 28.7 pg (27.5-34.5); MEAN CORPUSCULAR HGB CONC 33.2 g/dL (33.2-36.2); MEAN CORPUSCULAR VOLUME 86.6 fL (81-97); MEAN PLATELET VOLUME 8.1 fL (7.4-10.4); MONOCYTES # (AUTO) 0.89 x10^3/uL (0.2-0.8); MONOCYTES % (AUTO) 9 % (2-9); NEUTROPHILS # (AUTO) 7.16 x10^3/uL (1.8-6.8); NEUTROPHILS % (AUTO) 74 % (42-75); PLATELET COUNT 294 x10^3/uL (130-400); RED CELL DISTRIBUTION WIDTH 16.8 % (9.4-14.8)
[2018-09-24 06:09] LABS: CHLORIDE 100 mmol/L (98-107)
[2018-09-24 06:18] LABS: ALANINE AMINOTRANSFERASE 13 U/L (12-78); ALBUMIN 2.7 g/dL (3.4-5.0); ALKALINE PHOSPHATASE 87 U/L (45-117); ANION GAP 6 mmol/L (5-15); BILIRUBIN,TOTAL 0.9 mg/dL (0.2-1.0); CALCIUM 8.6 mg/dL (8.5-10.1); TOTAL PROTEIN 6.8 g/dL (6.4-8.2)
[2018-09-24 06:51] VITALS: BP 122/72
[2018-09-24] MEDS: AMOXICILLIN/CLAV 875-125MG TABLET PO SCH ×2 (08:40→20:23)
[2018-09-24] MEDS: AMLODIPINE 2.5 MG TABLET PO SCH (08:40)
[2018-09-24] MEDS: INSULIN GLARGINE 100 UNITS/ML, PEN SQ-INSULIN SCH (08:41)
[2018-09-24] MEDS: FUROSEMIDE 20 MG/2 ML IV SCH (10:24)
[2018-09-24 12:57] VITALS: BP 122/68
[2018-09-24] MEDS ORDERED: PHARMACY INSTRUCTION MC PRN (16:30)
[2018-09-24] MEDS ORDERED: FUROSEMIDE 20 MG/2 ML ONE (18:20)
[2018-09-24] MEDS: ISOSORBIDE MONONITRATE ER 30 MG TABLET PO SCH (18:29)
[2018-09-24] MEDS: TAMSULOSIN 0.4 MG CAP.ER.24H PO SCH (18:29)
[2018-09-24] MEDS: RIVAROXABAN 15 MG TABLET PO SCH (18:30)
[2018-09-24 19:46] VITALS: BP 117/74
[2018-09-24] MEDS: ATORVASTATIN 40 MG TABLET PO SCH (20:23)
[2018-09-24] MEDS: BACLOFEN 10 MG TABLET PO SCH (20:23)
[2018-09-25] MEDS: ALBUMIN HUMAN 25% 100 ML IV SCH (00:40)
[2018-09-25 01:28] VITALS: BP 108/53
[2018-09-25] MEDS ORDERED: FUROSEMIDE 20 MG/2 ML IV PRN (01:30)
[2018-09-25 04:42] LABS: BASOPHILS # (AUTO) 0.02 x10^3/uL (0-0.1); BASOPHILS % (AUTO) 0 % (0-1); EOSINOPHILS # (AUTO) 0.11 x10^3/uL (0-0.4); EOSINOPHILS % (AUTO) 1 % (1-7); LYMPHOCYTES # (AUTO) 1.92 x10^3/uL (1-3.4); LYMPHOCYTES % (AUTO) 20 % (22-44); MD NO; MEAN CORPUSCULAR VOLUME 87.7 fL (81-97); MEAN PLATELET VOLUME 8.3 fL (7.4-10.4); MONOCYTES # (AUTO) 0.96 x10^3/uL (0.2-0.8); MONOCYTES % (AUTO) 10 % (2-9); NEUTROPHILS # (AUTO) 6.58 x10^3/uL (1.8-6.8); NEUTROPHILS % (AUTO) 69 % (42-75); PLATELET COUNT 274 x10^3/uL (130-400); RED BLOOD COUNT 3.19 x10^6/uL (4.38-5.82); RED CELL DISTRIBUTION WIDTH 17.1 % (9.4-14.8)
[2018-09-25 04:51] LABS: ALBUMIN 3.5 g/dL (3.4-5.0); ANION GAP 7 mmol/L (5-15); CALCIUM 8.3 mg/dL (8.5-10.1); CHLORIDE 102 mmol/L (98-107); CREATININE 1.75 mg/dL (0.7-1.3)
[2018-09-25] MEDS: ASPIRIN 81 MG TABLET EC PO SCH (05:16)
[2018-09-25] MEDS: OMEPRAZOLE 20 MG CAPSULE.DR PO SCH (05:16)
[2018-09-25] MEDS: METOPROLOL TARTRATE 25 MG TABLET PO SCH (05:17)
[2018-09-25 07:56] VITALS: BP 127/70
[2018-09-25] MEDS ORDERED: MAGNESIUM SULFATE PMX 2GM/50ML 50 ML IV ONE (08:00)
[2018-09-25] MEDS: AMOXICILLIN/CLAV 875-125MG TABLET PO SCH (08:48)
[2018-09-25] MEDS: AMLODIPINE 2.5 MG TABLET PO SCH (08:49)
[2018-09-25] MEDS: INSULIN GLARGINE 100 UNITS/ML, PEN SQ-INSULIN SCH (09:12)
[2018-09-25] MEDS ORDERED: AMLO2.5T5 PO (12:06)
[2018-09-25] MEDS ORDERED: INSU100I13 SQ-INSULIN ×2 (12:06)
[2018-09-25] MEDS ORDERED: AMOX1TAB12 PO (12:06)
[2018-09-25] MEDS ORDERED: FURO-93 PO (12:06)
[2018-09-25] MEDS ORDERED: FUROSEMIDE 20 MG/2 ML IV SCH (16:00)
== END 2018-09-25 13:25 | disposition home health service (06) | DRG 291 ==
LOC: ED 16:21 → EDIP 16:23 → 5SO 17:25 → DCLOUNGE 09-25 13:09
PROVIDERS: ADMIT Hospitalist; ATTEND Hospitalist
DX: I13.0 Hypertensive heart and chronic kidney disease with heart failure and stage 1 through stage 4 chronic kidney disease, or unspecified chronic kidney disease (principal); I50.43 Acute on chronic combined systolic (congestive) and diastolic (congestive) heart failure; J18.9 Pneumonia, unspecified organism; J96.10 Chronic respiratory failure, unspecified whether with hypoxia or hypercapnia; C90.00 Multiple myeloma not having achieved remission; J44.0 Chronic obstructive pulmonary disease with (acute) lower respiratory infection; Z66 Do not resuscitate; D64.9 Anemia, unspecified; E11.22 Type 2 diabetes mellitus with diabetic chronic kidney disease; E78.5 Hyperlipidemia, unspecified; I25.10 Atherosclerotic heart disease of native coronary artery without angina pectoris; I44.1 Atrioventricular block, second degree; I48.91 Unspecified atrial fibrillation; K21.9 Gastro-esophageal reflux disease without esophagitis; N18.3 Chronic kidney disease, stage 3 (moderate); Z79.4 Long term (current) use of insulin; Z85.820 Personal history of malignant melanoma of skin; Z86.73 Personal history of transient ischemic attack (TIA), and cerebral infarction without residual deficits; Z95.0 Presence of cardiac pacemaker; Z87.891 Personal history of nicotine dependence; I25.2 Old myocardial infarction; Z95.5 Presence of coronary angioplasty implant and graft; Z99.81 Dependence on supplemental oxygen; Z88.2 Allergy status to sulfonamides; Z88.8 Allergy status to other drugs, medicaments and biological substances
CPT/HCPCS: 36415; 71045; 80048; 80053; 82040; 82962; 83735; 83880; 84100; 84484; 85025; 85610; 85730; 93005; 93970; 94640; 99285; G0378; J7613; P9047; J1815; J1940; J3475

== ENCOUNTER 2018-10-08 13:08 | Inpatient (IN) | payer MEDICARE, OTHER ==
[~2018-10-08] VITALS: Ht 182.9 cm; Wt 72.4 kg
[~2018-10-08 13:08] MED LIST changes: +AMLO2.5T2 PO; +AMLO2.5T5 PO; +BACL20TA PO; +FURO-93 PO
--- NOTE | 2018-10-08 13:14 | NUR ---
LATE ENTRY FOR 131: BIBA FROM HOME IN [place], REPORT RECEIVED FROM EMS; C/O HALLUCLINATIONS AFTER FIRST EVER DOSE SPIRONOLACTONE THIS AM, ALSO CONFUSION. PT A&O X 4 ON ARRIVAL, HALLUCINTATIONS RESOVED. PT ALSO NOTES SOB X 2 DAYS AND EXACERBATION OF CHRONIC BACK PAIN, LEVEL 7/10 AT THIS TIME. PT HAS EVEN RESPS, MILDLY LABORED. ALL MONTIORS IN PLACE. EKG TAKEN ON ARRIVAL BY EDT. CALL LIGHT IN REACH.
[2018-10-08] MEDS ORDERED: PLEASE ENTER HEIGHT AND WEIGHT MC SCH (13:30)
[2018-10-08] MEDS ORDERED: SODIUM CHLORIDE FLUSH 10ML SYR IVF ONE (13:30)
[2018-10-08 14:04] LABS: BASOPHILS # (AUTO) 0.06 x10^3/uL (0-0.1); BASOPHILS % (AUTO) 1 % (0-1); EOSINOPHILS # (AUTO) 0.01 x10^3/uL (0-0.4); EOSINOPHILS % (AUTO) 0 % (1-7); LYMPHOCYTES # (AUTO) 1.38 x10^3/uL (1-3.4); LYMPHOCYTES % (AUTO) 10 % (22-44); MD NO; MEAN CORPUSCULAR HEMOGLOBIN 28.8 pg (27.5-34.5); MEAN CORPUSCULAR HGB CONC 33.2 g/dL (33.2-36.2); MEAN CORPUSCULAR VOLUME 86.7 fL (81-97); MEAN PLATELET VOLUME 8.2 fL (7.4-10.4); MONOCYTES # (AUTO) 1.11 x10^3/uL (0.2-0.8); MONOCYTES % (AUTO) 8 % (2-9); NEUTROPHILS # (AUTO) 11.44 x10^3/uL (1.8-6.8); NEUTROPHILS % (AUTO) 82 % (42-75); PLATELET COUNT 406 x10^3/uL (130-400); RED BLOOD COUNT 3.76 x10^6/uL (4.38-5.82); RED CELL DISTRIBUTION WIDTH 16.7 % (9.4-14.8)
--- NOTE | 2018-10-08 14:10 | NUR ---
UA STRAIGHT CATH OBTAINED USING STERILE TECHNIQUE, URINE SENT TO LAB. PT TOLERATED WELL. PT REMAINS A&O, RESPS EVEN, MILDLY LABORED. NO INC IN WOB. Addendum: 10/08/18 at 1457 by DANIEL UA STRAIGHT CATH OBTAINED USING STERILE TECHNIQUE, URINE SENT TO LAB. PT TOLERATED WELL. APPROX 500ML CONCENTRATED YELLOW URINE REMOVED VIA STRAIGHT CATH. PT REMAINS A&O, RESPS EVEN, MILDLY LABORED. NO INC IN WOB.
[2018-10-08 14:11] LABS: INTERNATIONAL NORMALIZED RATIO 1.11 (0.93-1.1); PROTHROMBIN TIME 11.6 Seconds (9.6-11.5)
[2018-10-08 14:14] LABS: ALANINE AMINOTRANSFERASE 16 U/L (12-78); ALBUMIN 2.6 g/dL (3.4-5.0); ANION GAP 9 mmol/L (5-15); CALCIUM 8.9 mg/dL (8.5-10.1); CHLORIDE 101 mmol/L (98-107); CREATININE 1.93 mg/dL (0.7-1.3)
[2018-10-08 14:16] LABS: MICROSCOPIC AUTO
[2018-10-08 14:18] LABS: ALKALINE PHOSPHATASE 91 U/L (45-117); BILIRUBIN,TOTAL 0.5 mg/dL (0.2-1.0); TOTAL PROTEIN 7.2 g/dL (6.4-8.2); TROPONIN I 0.098 ng/mL (0.000-0.045)
[2018-10-08 14:23] LABS: CULTURE INDICATED? NO
--- NOTE | 2018-10-08 14:45 | NUR ---
LABS AND IMAGING RESULTS REVIEWED BY EDMD LAW. EDMD LAW AT BEDSIDE TO UPDATE PT WITH RESULTS AND POC.
--- NOTE | 2018-10-08 14:56 | NUR ---
PT A&OX4, NEURO REMAINS INTACT. WOB MILDLY LABORED, NO INCREASE IN WORK OF BREATHING. RESPS EVEN. VSS. PT DENIES ANY NEEDS AT THIS TIME.
--- NOTE | 2018-10-08 16:04 | NUR ---
PT RESTING ON GURNEY, RESPS EVEN, NO INC IN WOB. VSS. AWAITING BED ASSIGNMENT AND TRANSPORT AT THIS TIME. PT AWARE OF POC.
--- NOTE | 2018-10-08 16:06 | NUR ---
HOSPITALIST MD WILHELM AT BEDSIDE.
[2018-10-08] MEDS ORDERED: METO25TA91 PO (16:12)
[2018-10-08] MEDS ORDERED: BACL-19 PO (16:12)
[2018-10-08] MEDS ORDERED: LIDOCAINE-MPF 1%, 5ML ONE (16:20)
[2018-10-08] MEDS ORDERED: hydrALAzine 20 MG/ML, 1ML IVPush PRN (16:30)
[2018-10-08] MEDS ORDERED: BISACODYL 10 MG SUPP PR PRN (16:30)
[2018-10-08] MEDS ORDERED: POLYETHYLENE GLYCOL 17 GM PACKET PO PRN (16:30)
--- NOTE | 2018-10-08 16:30 | NUR ---
PT IN IR
--- NOTE | 2018-10-08 16:55 | NUR ---
PT BACK FROM IR.
--- NOTE | 2018-10-08 16:58 | NUR ---
THORACENTESIS PUNCTURE SITE IS TO RIGHT POSTERIER LOWER THORAX. SITE CDI, DRESSED WITH TEGARDERM DRESSING. PT REPORTS 6/10 MIDLINE LOWER BACK PAIN, STATES THIS IS CHRONIC. PT IS A&O, RESPS EVEN, MILDLY LABORED WITH NO INC IN WOB. ALL MONITORS IN PLACE ,PT IS PACED SINUS RHYTHM, RATE 90'S WITH NO ECTOPY. CALL LIGHT IN REACH.
[2018-10-08] MEDS ORDERED: PHARMACY MAY ADJ FOR RENAL FX MC PRN (17:00)
[2018-10-08] MEDS ORDERED: ACETAMINOPHEN 325 MG TABLET ONE (17:03)
[2018-10-08] MEDS: ACETAMINOPHEN 325 MG TABLET PO PRN (17:07)
--- NOTE | 2018-10-08 17:09 | NUR ---
PT'S CALLED, GIVEN UPDATE WITH POC WITH PERMISSION OF PT. PT MEDICATED PER EMAR FOR BACK PAIN. TOLERATED WELL.
--- NOTE | 2018-10-08 17:10 | NUR ---
PT'S IS ANI [phone]
[2018-10-08 17:14] LABS: HCT (SEDRATE) 32.4 % (39.2-51.8)
[2018-10-08 17:29] LABS: FREE T4 (FREE THYROXINE) 1.63 ng/dL (0.76-1.46); TROPONIN I 0.091 ng/mL (0.000-0.045)
[2018-10-08] MEDS ORDERED: DEXTROSE 4 GM TAB.CHEW PO PRN (17:30)
[2018-10-08] MEDS ORDERED: GLUCAGON 1 MG IM PRN (17:30)
[2018-10-08] MEDS ORDERED: DEXTROSE 50%, 50ML SYRINGE IVPush PRN (17:30)
[2018-10-08 17:35] LABS: THYROID STIMULATING HORMONE 0.692 mIU/L (0.358-3.740)
--- NOTE | 2018-10-08 17:38 | NUR ---
REPORT GIVEN TO CHAU BRAVO, PT AWAITING TRANSPORT TO ROOM 510.
[2018-10-08] MEDS ORDERED: FUROSEMIDE 20 MG/2 ML ONE (17:57)
[2018-10-08] MEDS ORDERED: ISOSORBIDE MONONITRATE ER 30 MG TABLET ONE (17:58)
[2018-10-08] MEDS ORDERED: TAMSULOSIN 0.4 MG CAP.ER.24H ONE (17:58)
[2018-10-08] MEDS: ISOSORBIDE MONONITRATE ER 30 MG TABLET PO SCH (18:00)
[2018-10-08] MEDS ORDERED: GUAIFENESIN/DM 200-20MG, 10ML UDC PO PRN (18:00)
[2018-10-08] MEDS ORDERED: GABAPENTIN 300 MG CAPSULE PO PRN (18:00)
[2018-10-08] MEDS: TAMSULOSIN 0.4 MG CAP.ER.24H PO SCH (18:03)
[2018-10-08 18:09] VITALS: BP 125/73
[2018-10-08] MEDS: INSULIN LISPRO 100 UNITS/ML, PEN SQ-INSULIN SCH ×2 (18:32→21:59)
[2018-10-08] MEDS: RIVAROXABAN 15 MG TABLET PO SCH (18:33)
[2018-10-08 19:08] VITALS: BP 91/56
[2018-10-08] MEDS ORDERED: FUROSEMIDE 40 MG/4 ML IV SCH (21:00)
[2018-10-08] MEDS ORDERED: DOCUSATE 100 MG CAPSULE PO PRN (21:00)
[2018-10-08] MEDS: METOPROLOL SUCCINATE 25 MG TAB.ER.24H PO SCH (21:52)
[2018-10-08] MEDS: SODIUM CHLORIDE FLUSH 10ML SYR IVF SCH (21:53)
[2018-10-08] MEDS: ATORVASTATIN 40 MG TABLET PO SCH (21:53)
[2018-10-08] MEDS: FUROSEMIDE 20 MG/2 ML IV SCH (21:53)
[2018-10-08 22:42] LABS: TROPONIN I 0.091 ng/mL (0.000-0.045)
[2018-10-09 03:16] VITALS: BP 113/53
[2018-10-09] MEDS: ASPIRIN 81 MG TABLET EC PO SCH (05:13)
[2018-10-09 05:20] LABS: BASOPHILS # (AUTO) 0.04 x10^3/uL (0-0.1); BASOPHILS % (AUTO) 0 % (0-1); EOSINOPHILS # (AUTO) 0.09 x10^3/uL (0-0.4); EOSINOPHILS % (AUTO) 1 % (1-7); LYMPHOCYTES # (AUTO) 2.48 x10^3/uL (1-3.4); LYMPHOCYTES % (AUTO) 20 % (22-44); MD NO; MEAN CORPUSCULAR HGB CONC 31.9 g/dL (33.2-36.2); MEAN CORPUSCULAR VOLUME 87.8 fL (81-97); MEAN PLATELET VOLUME 8.4 fL (7.4-10.4); MONOCYTES # (AUTO) 1.11 x10^3/uL (0.2-0.8); MONOCYTES % (AUTO) 9 % (2-9); NEUTROPHILS # (AUTO) 8.72 x10^3/uL (1.8-6.8); NEUTROPHILS % (AUTO) 70 % (42-75); PLATELET COUNT 402 x10^3/uL (130-400); RED BLOOD COUNT 3.39 x10^6/uL (4.38-5.82); RED CELL DISTRIBUTION WIDTH 16.8 % (9.4-14.8)
[2018-10-09 05:21] LABS: CHLORIDE 104 mmol/L (98-107)
[2018-10-09 05:29] LABS: ALANINE AMINOTRANSFERASE 22 U/L (12-78); ALBUMIN 2.2 g/dL (3.4-5.0); ALKALINE PHOSPHATASE 80 U/L (45-117); ANION GAP 8 mmol/L (5-15); BILIRUBIN,TOTAL 0.6 mg/dL (0.2-1.0); CALCIUM 8.6 mg/dL (8.5-10.1); CHOLESTEROL, TOTAL 67 mg/dL (140-239); CREATININE 1.78 mg/dL (0.7-1.3); HDL CHOL % 49 % (26-37); HDL CHOLESTEROL (DIRECT) 33 mg/dL (40-60); LDL CHOLESTEROL,CALCULATED 20 mg/dL (54-169); LDL/HDL RATIO 0.6 (0.5-3.0); TOTAL PROTEIN 6.4 g/dL (6.4-8.2); TRIGLYCERIDES 70 mg/dL (50-200); VLDL CHOLESTEROL 14 mg/dL (0-25)
[2018-10-09 07:18] VITALS: BP 118/68
[2018-10-09] MEDS: INSULIN LISPRO 100 UNITS/ML, PEN SQ-INSULIN SCH ×4 (08:43→20:17)
[2018-10-09] MEDS: SODIUM CHLORIDE FLUSH 10ML SYR IVF SCH ×2 (08:51→20:11)
[2018-10-09] MEDS: METOPROLOL SUCCINATE 25 MG TAB.ER.24H PO SCH ×2 (08:51→20:14)
[2018-10-09] MEDS: OMEPRAZOLE 20 MG CAPSULE.DR PO SCH (08:51)
[2018-10-09] MEDS: MULTIVITAMINS/MINERALS TABLET PO SCH (08:52)
[2018-10-09] MEDS: FUROSEMIDE 20 MG/2 ML IV SCH ×2 (08:52→17:14)
[2018-10-09] MEDS: ACETAMINOPHEN 325 MG TABLET PO PRN (09:06)
[2018-10-09] MEDS: INSULIN GLARGINE 100 UNITS/ML, PEN SQ-INSULIN SCH (09:11)
[2018-10-09 15:01] VITALS: BP 129/76
[2018-10-09] MEDS: TAMSULOSIN 0.4 MG CAP.ER.24H PO SCH (17:14)
[2018-10-09] MEDS: RIVAROXABAN 15 MG TABLET PO SCH (17:14)
[2018-10-09] MEDS: ISOSORBIDE MONONITRATE ER 30 MG TABLET PO SCH (17:14)
[2018-10-09 19:58] VITALS: BP 131/61
[2018-10-09] MEDS: ATORVASTATIN 40 MG TABLET PO SCH (20:11)
[2018-10-10 01:21] VITALS: BP 124/66
[2018-10-10 04:25] LABS: BASOPHILS # (AUTO) 0.07 x10^3/uL (0-0.1); BASOPHILS % (AUTO) 1 % (0-1); EOSINOPHILS # (AUTO) 0.07 x10^3/uL (0-0.4); EOSINOPHILS % (AUTO) 1 % (1-7); LYMPHOCYTES # (AUTO) 2.24 x10^3/uL (1-3.4); LYMPHOCYTES % (AUTO) 18 % (22-44); MD NO; MEAN CORPUSCULAR HEMOGLOBIN 28.3 pg (27.5-34.5); MEAN CORPUSCULAR HGB CONC 32.3 g/dL (33.2-36.2); MEAN CORPUSCULAR VOLUME 87.5 fL (81-97); MONOCYTES # (AUTO) 1.21 x10^3/uL (0.2-0.8); MONOCYTES % (AUTO) 10 % (2-9); NEUTROPHILS # (AUTO) 8.72 x10^3/uL (1.8-6.8); NEUTROPHILS % (AUTO) 71 % (42-75); PLATELET COUNT 418 x10^3/uL (130-400); RED BLOOD COUNT 3.24 x10^6/uL (4.38-5.82); RED CELL DISTRIBUTION WIDTH 16.6 % (9.4-14.8)
[2018-10-10 04:52] LABS: CHLORIDE 103 mmol/L (98-107)
[2018-10-10 04:57] LABS: ANION GAP 7 mmol/L (5-15); CALCIUM 8.3 mg/dL (8.5-10.1)
[2018-10-10] MEDS: ASPIRIN 81 MG TABLET EC PO SCH (05:02)
[2018-10-10 07:50] VITALS: BP 130/71
[2018-10-10] MEDS: INSULIN LISPRO 100 UNITS/ML, PEN SQ-INSULIN SCH ×4 (08:48→20:33)
[2018-10-10] MEDS: METOPROLOL SUCCINATE 25 MG TAB.ER.24H PO SCH ×2 (08:49→20:25)
[2018-10-10] MEDS: INSULIN GLARGINE 100 UNITS/ML, PEN SQ-INSULIN SCH (08:49)
[2018-10-10] MEDS: FUROSEMIDE 20 MG/2 ML IV SCH ×2 (08:49→20:30)
[2018-10-10] MEDS: OMEPRAZOLE 20 MG CAPSULE.DR PO SCH (08:50)
[2018-10-10] MEDS: SODIUM CHLORIDE FLUSH 10ML SYR IVF SCH ×2 (08:50→20:31)
[2018-10-10] MEDS: MULTIVITAMINS/MINERALS TABLET PO SCH (08:50)
[2018-10-10 12:33] VITALS: BP 128/72
[2018-10-10] MEDS: PIPERACILLIN/TAZO/PMX 3.375GM 50 ML IV SCH ×2 (14:12→21:14)
[2018-10-10] MEDS: ISOSORBIDE MONONITRATE ER 30 MG TABLET PO SCH (17:33)
[2018-10-10] MEDS: TAMSULOSIN 0.4 MG CAP.ER.24H PO SCH (17:33)
[2018-10-10] MEDS: RIVAROXABAN 15 MG TABLET PO SCH (17:45)
[2018-10-10] MEDS: ACETAMINOPHEN 325 MG TABLET PO PRN (18:33)
[2018-10-10 19:59] VITALS: BP 134/65
[2018-10-10] MEDS: ATORVASTATIN 40 MG TABLET PO SCH (20:25)
[2018-10-11 02:31] VITALS: BP 118/67
[2018-10-11] MEDS: ASPIRIN 81 MG TABLET EC PO SCH (05:29)
[2018-10-11] MEDS: PIPERACILLIN/TAZO/PMX 3.375GM 50 ML IV SCH ×2 (05:29→14:00)
[2018-10-11 07:30] VITALS: BP 124/71
[2018-10-11] MEDS: INSULIN LISPRO 100 UNITS/ML, PEN SQ-INSULIN SCH ×2 (08:40→13:30)
[2018-10-11] MEDS: OMEPRAZOLE 20 MG CAPSULE.DR PO SCH (08:40)
[2018-10-11] MEDS: INSULIN GLARGINE 100 UNITS/ML, PEN SQ-INSULIN SCH (08:41)
[2018-10-11] MEDS: MULTIVITAMINS/MINERALS TABLET PO SCH (08:41)
[2018-10-11] MEDS: METOPROLOL SUCCINATE 25 MG TAB.ER.24H PO SCH (08:41)
[2018-10-11] MEDS: SODIUM CHLORIDE FLUSH 10ML SYR IVF SCH (08:52)
[2018-10-11] MEDS: FUROSEMIDE 20 MG/2 ML IV SCH (08:52)
[2018-10-11] MEDS ORDERED: LOSARTAN 25MG TABLET PO SCH (11:30)
[2018-10-11] MEDS ORDERED: CEFT2PIG2 IV (11:34)
[2018-10-11] MEDS ORDERED: LOSA25TA25 PO (11:34)
[2018-10-11] MEDS ORDERED: FURO40TA6 PO (11:34)
[2018-10-11] MEDS ORDERED: INSU100I11 SQ-INSULIN (11:34)
[2018-10-11 12:30] VITALS: BP 130/71
[2018-10-11] MEDS ORDERED: LIDOCAINE-MPF 1%, 5ML ONE ×2 (12:39→13:36)
== END 2018-10-11 16:35 | DRG 177 ==
LOC: ED 14:35 → EDIP 15:10 → 5SO 17:50
PROVIDERS: ADMIT Internal Medicine; ATTEND Internal Medicine
PROC: 0T9B70Z Drainage of Bladder with Drainage Device, Via Natural or Artificial Opening (ICD-10-PCS; principal; 2018-10-08)
PROC: 0W993ZZ Drainage of Right Pleural Cavity, Percutaneous Approach (ICD-10-PCS; 2018-10-08)
PROC: 0W993ZZ Drainage of Right Pleural Cavity, Percutaneous Approach (ICD-10-PCS; 2018-10-11)
DX: J15.5 Pneumonia due to Escherichia coli (principal); I50.23 Acute on chronic systolic (congestive) heart failure; J96.20 Acute and chronic respiratory failure, unspecified whether with hypoxia or hypercapnia; I13.0 Hypertensive heart and chronic kidney disease with heart failure and stage 1 through stage 4 chronic kidney disease, or unspecified chronic kidney disease; N17.9 Acute kidney failure, unspecified; D68.69 Other thrombophilia; J44.0 Chronic obstructive pulmonary disease with (acute) lower respiratory infection; J91.8 Pleural effusion in other conditions classified elsewhere; D50.9 Iron deficiency anemia, unspecified; E11.22 Type 2 diabetes mellitus with diabetic chronic kidney disease; E78.5 Hyperlipidemia, unspecified; G89.29 Other chronic pain; I25.10 Atherosclerotic heart disease of native coronary artery without angina pectoris; I25.2 Old myocardial infarction; I48.0 Paroxysmal atrial fibrillation; K21.9 Gastro-esophageal reflux disease without esophagitis; N18.3 Chronic kidney disease, stage 3 (moderate); Z66 Do not resuscitate; Z79.4 Long term (current) use of insulin; Z85.820 Personal history of malignant melanoma of skin; Z86.19 Personal history of other infectious and parasitic diseases; Z86.73 Personal history of transient ischemic attack (TIA), and cerebral infarction without residual deficits; Z87.891 Personal history of nicotine dependence; Z95.0 Presence of cardiac pacemaker; Z90.49 Acquired absence of other specified parts of digestive tract
CPT/HCPCS: 32555; 36415; 36600; 71045; 80048; 80053; 80061; 81001; 82803; 82962; 83605; 83615; 83735; 83880; 84100; 84157; 84439; 84443; 84484; 85025; 85610; 85651; 85730; 87040; 87070; 87077; 87186; 87205; 89051; 93005; 99285; G0378; J2543; J1815; J1940